=== PATIENT | female | born 1950 | race African-American/Black ===

== ENCOUNTER → 2016-07-28 | Outpatient (CLI) | payer MEDICARE, OTHER ==
[2016-07-28 15:05] LABS: PROTHROMBIN TIME 27.7 SEC (11.4-15.4)
== END ==
LOC: OD 13:34
PROVIDERS: ATTEND Internal Medicine
DX: Z79.01 Long term (current) use of anticoagulants (principal)
CPT/HCPCS: 36415; 85610

== ENCOUNTER → 2016-10-08 | Outpatient (CLI) | payer MEDICARE, OTHER ==
[2016-10-08 15:07] LABS: PROTHROMBIN TIME 31.9 SEC (11.4-15.4)
== END ==
LOC: OD 14:16
PROVIDERS: ATTEND Internal Medicine
DX: Z79.01 Long term (current) use of anticoagulants (principal)
CPT/HCPCS: 36415; 85610

== ENCOUNTER → 2016-12-01 | Outpatient (CLI) | payer MEDICARE, OTHER ==
--- NOTE | 2016-12-01 13:08 | RADIOLOGY REPORT (SQ) ---
EXAM DESCRIPTION: SHOULDER RIGHT 2 OR MORE VIEWS COMPLETED DATE/TIME: 12/01/2016 12:36 pm REASON FOR STUDY: PAIN IN RIGHT SHOULDER M25.511 PAIN IN RIGHT SHOULDER COMPARISON: None. NUMBER OF VIEWS: Three views. TECHNIQUE: Internal rotation, external rotation, and Y view images acquired of the right shoulder. LIMITATIONS: None. FINDINGS: MINERALIZATION: Osteopenia. BONES: No acute fracture or dislocation. No worrisome bone lesions. JOINTS: No glenohumeral malalignment. No acromioclavicular joint widening. Mild ac joint bony spurr ing VISUALIZED LUNGS AND RIBS: No pneumothorax. No rib fracture. SOFT TISSUES: No radiopaque foreign body. OTHER: No other significant finding. IMPRESSION: No acute fracture or malalignment. Acromioclavicular joint bony spurring. TECHNICAL DOCUMENTATION: JOB ID: [id number] [employer]- All Rights Reserved
[2016-12-01 14:34] LABS: PROTHROMBIN TIME 27.5 SEC (11.4-15.4)
== END ==
LOC: OD 12:13
PROVIDERS: ATTEND Internal Medicine
DX: Z79.01 Long term (current) use of anticoagulants (principal); M25.511 Pain in right shoulder
CPT/HCPCS: 36415; 85610

== ENCOUNTER → 2016-12-21 | Day surgery (SDC) | payer MEDICARE, OTHER ==
--- NOTE | 2016-12-21 17:18 | RADIOLOGY REPORT (SQ) ---
CORRECTED REPORT EXAM DESCRIPTION: INJECT SHOULDER ARTHROG; FLUORO NEEDLE PLACEMENT COMPLETED DATE/TIME: 12/21/2016 2:51 pm REASON FOR STUDY: COMPLETE ROTATOR CUFF TEAR OR RUPTURE OF RT SHOULDER (M75.121 ) M75.21 BICIPITAL TENDINITIS, RIGHT SHOULDER FLUOROSCOPY TIME: 21 seconds 2 digital radiographic images saved to PACS. LIMITATIONS: None. PROCEDURE: Procedure, risks, benefits and alternative explained to patient who then gave written consent. The right shoulder was marked and a time-out was called for correct marking verification. Posterior entry site marked using fluoroscopic guidance. Shoulder prepped and draped using sterile technique. Local anesthesia achieved using 6 mL of 1% lidocaine injection. 22 gauge spinal needle introduced into the joint space under direct fluoroscopic visualization. Non-ionic contrast instilled to confirm intra-articular position. Additional dilute non-ionic contrast instilled. Needle removed and entry site covered with sterile bandage. No immediate complications noted. TECHNIQUE: Digital images acquired during fluoroscopy and stored on PACS. Patient immediately taken to the CT suite for additional imaging. INJECTION LOCATION: Right posterior glenohumeral joint CONTRAST TYPE AND AMOUNT: 2 mL of Isovue-300 contrast injected to confirm intra- articular needle placement, followed by 10 mL of dilute Isovue-[address] arthrogram NUMBER OF IMAGES: 2 digital radiographic images, CT post arthrogram dictated separately IMPRESSION: SUCCESSFUL NEEDLE PLACEMENT AND INJECTION FOR RIGHT SHOULDER CT ARTHROGRAM USING POSTERIOR APPROACH. COMMENT: Quality ID 145: Final reports for procedures using fluoroscopy that document radiation exposure indices, or exposure time and number of fluorographic images (if radiation exposure indices are not available) TECHNICAL DOCUMENTATION: JOB ID: [id number] [employer]- All Rights Reserved COMPARISON: None. Right shoulder films 12/01/2016 <Electronically signed by DAYA JEFFREY MD in [place]> 12/21/16 1718 [facility]
--- NOTE | 2016-12-21 17:43 | RADIOLOGY REPORT (SQ) ---
EXAM DESCRIPTION: CT RT UPPER EXTREMITY WITH COMPLETED DATE/TIME: 12/21/2016 2:51 pm REASON FOR STUDY: COMPLETE ROTATOR CUFF TEAR OR RUPTURE OF RT SHOULDER (M75.121) M75.21 BICIPITAL T ENDINITIS, RIGHT SHOULDER COMPARISON: None. TECHNIQUE: Axial imaging performed through the rightshoulder with reformatted oblique coronal and ob lique sagittal imaging windowed for bone and soft tissues. All CT scanners at this facility use dose modulation, iterative reconstruction, and/or weight based d osing when appropriate to reduce radiation dose to as low as reasonably achievable (ALARA). [facility]: Dose Right [facility]: CareDose [facility]: Dose Right [facility]: Teradose 4D [facility]: [employer] RADIATION DOSE: Up-to-date CT equipment and radiation dose reduction techniques were employed. CTDIv ol: 32.2 mGy. DLP: 727 mGy-cm. mGy. LIMITATIONS: None. FINDINGS: SOFT TISSUES: No axillary adenopathy. No soft tissue masses around right shoulder BONY ARCHITECTURE: No fracture. No lytic or blastic lesions. Os acromiale on axial image 12. GLENOHUMERAL JOINT: No dislocation/subluxation. Articular cartilage is preserved. ACROMION AND AC JOINT: Type 2 acromion with os acromiale and mild bony spurring narrowing the subacro mial recess best shown on sagittal image 39. ROTATOR CUFF: There is a small full-thickness rotator cuff tear along the anterior edge supraspinatus , and a small full-thickness tear anterior edge infraspinatus on sagittal images 45-51. Subscapulari s grossly intact. GLENOID, LABRUM AND BICEPS: Intra-articular long head biceps tendon and labral attachment is intact. The posterosuperior labrum is diffusely small on axial images 20-27 and sagittal image 37 without pa ralabral cyst. OTHER: No other significant finding. IMPRESSION: Narrowing of the subacromial space from AC joint bony spurring Small full-thickness tear anterior edge supraspinatus and anterior edge infraspinatus tendon Diffusely small posterior labrum without paralabral cysts. TECHNICAL DOCUMENTATION: JOB ID: [id number] Quality ID # [id number]: Final reports with documentation of one or more dose reduction techniques (e.g., Au tomated exposure control, adjustment of the mA and/or kV according to patient size, use of iterative reconstruction technique) 2010 [employer]- All Rights Reserved
== END ==
LOC: RAD 13:24
PROVIDERS: ATTEND Orthopaedic Surgery
PROC: BP08ZZZ Plain Radiography of Right Shoulder (ICD-10-PCS; principal; 2016-12-21)
DX: M75.121 Complete rotator cuff tear or rupture of right shoulder, not specified as traumatic (principal); M75.21 Bicipital tendinitis, right shoulder
CPT/HCPCS: 23350; 27095; 77002

== ENCOUNTER 2016-12-23 17:36 | Emergency (ER) | payer MEDICARE, OTHER ==
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
[2016-12-23 18:47] LABS: PROTHROMBIN TIME 28.1 SEC (11.4-15.4)
[2016-12-23 18:49] LABS: ABSOLUTE EOSINOPHILS # (AUTO) 0.2 10^3/uL (0.0-0.6); ABSOLUTE LYMPHOCYTES (AUTO) 1.5 10^3/uL (0.5-4.7); ABSOLUTE MONOCYTES (AUTO) 0.6 10^3/uL (0.1-1.4); ABSOLUTE NEUT (AUTO) 3.7 10^3/uL (1.7-8.2); BASOPHILS % (AUTO) 0.8 % (0-2); EOSINOPHILS % (AUTO) 2.9 % (0-6); HEMOGLOBIN 12.8 g/dL (12.0-15.5); HGB HCT DIFFERENCE -1.6; LYMPHOCYTES % (AUTO) 24.4 % (13-45); MEAN CORPUSCULAR HEMOGLOBIN 27.8 pg (27.0-33.4); MEAN CORPUSCULAR VOLUME 87 fl (80-97); MONOCYTES % (AUTO) 9.6 % (3-13); RED CELL DISTRIBUTION WIDTH 14.8 % (11.5-14.0); SEGMENTED NEUTROPHILS % (AUTO) 62.3 % (42-78)
[2016-12-23 18:59] LABS: ALANINE AMINOTRANSFERASE 37 U/L (9-52); ALBUMIN 4.3 g/dL (3.5-5.0); ALKALINE PHOSPHATASE 74 U/L (38-126); ANION GAP 9 (5-19); ASPARTATE AMINO TRANSFERASE 33 U/L (14-36); BILIRUBIN,DIRECT 0.3 mg/dL (0.0-0.4); BILIRUBIN,TOTAL 0.6 mg/dL (0.2-1.3); BLOOD UREA NITROGEN 21 mg/dL (7-20); CALCIUM 9.7 mg/dL (8.4-10.2); CARBON DIOXIDE 29 mmol/L (22-30); CHLORIDE 102 mmol/L (98-107); GLUCOSE 91 mg/dL (75-110); POTASSIUM 4.2 mmol/L (3.6-5.0); SODIUM 140.4 mmol/L (137-145); TOTAL PROTEIN 7.3 g/dL (6.3-8.2)
--- NOTE | 2016-12-23 18:59 | RADIOLOGY REPORT (SQ) ---
EXAM DESCRIPTION: CHEST PA/LAT COMPLETED DATE/TIME: 12/23/2016 6:49 pm REASON FOR STUDY: sob COMPARISON: 06/14/2014 EXAM PARAMETERS: NUMBER OF VIEWS: two views TECHNIQUE: Digital Frontal and Lateral radiographic views of the chest acquired. RADIATION DOSE: NA LIMITATIONS: none FINDINGS: LUNGS AND PLEURA: No opacities, masses or pneumothorax. No pleural effusion. MEDIASTINUM AND HILAR STRUCTURES: No masses or contour abnormalities. HEART AND VASCULAR STRUCTURES: Heart normal size. No evidence for failure. BONES: No acute findings. HARDWARE: Stable. OTHER: No other significant finding. IMPRESSION: NO ACUTE CARDIOPULMONARY PROCESS. NO SIGNIFICANT CHANGE FROM PRIOR STUDY. TECHNICAL DOCUMENTATION: JOB ID: [id number] [employer]- All Rights Reserved
[2016-12-23 19:11] LABS: TROPONIN I 0.012 ng/mL
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
[2016-12-23] MEDS ORDERED: CALCIUM CARBONATE 500 MG TAB.CHEW PO ONE (21:19)
--- NOTE | 2016-12-23 21:36 | RADIOLOGY REPORT (SQ) ---
EXAM DESCRIPTION: CTA CHEST COMPLETED DATE/TIME: 12/23/2016 9:16 pm REASON FOR STUDY: chest pain short of breath COMPARISON: None. TECHNIQUE: CT scan of the chest performed using helical scanning technique with dynamic intravenous contrast injection. Images reviewed with lung, soft tissue and bone windows. Reconstructed coronal and sagittal MPR images reviewed. Additional 3 dimensional post-processing performed to develop Maximal Intensity Projection images (CT P). All images stored on PACS. All CT scanners at this facility use dose modulation, iterative reconstruction, and/or weight based d osing when appropriate to reduce radiation dose to as low as reasonably achievable (ALARA). [facility]: Dose Right [facility]: CareDose [facility]: Dose Right [facility]: Teradose 4D [facility]: [employer] CONTRAST TYPE AND DOSE: contrast/concentration: Isovue 370.00 mg/ml; Total Contrast Delivered: 80.0 ml; Total Saline Delivered: 55.0 ml RENAL FUNCTION: BUN 21 creatinine 0.9 RADIATION DOSE: Up-to-date CT equipment and radiation dose reduction techniques were employed. CTDIv ol: 20.8 mGy. DLP: 557 mGy-cm. . LIMITATIONS: None. FINDINGS: LUNGS AND PLEURA: No masses, infiltrates, pneumothorax. Mild dependent subsegmental atele ctasis. No pleural effusions, calcifications. AORTA AND GREAT VESSELS: No aneurysm or dissection. HEART: No pericardial effusion. PULMONARY ARTERIES: No emboli visualized in the main pulmonary arteries or the segmental branches. HILAR AND MEDIASTINAL STRUCTURES: No identified masses or abnormal nodes. HARDWARE: Median sternotomy wires noted. Prostatic mitral valve. UPPER ABDOMEN: No significant findings. Limited exam. THYROID AND OTHER SOFT TISSUES: No masses. No adenopathy. BONES: No acute or significant finding. 3D MIPS: Confirm above findings. OTHER: No other significant finding. IMPRESSION: NORMAL CTA OF THE CHEST. NO PULMONARY EMBOLI. TECHNICAL DOCUMENTATION: JOB ID: [id number] Quality ID # [id number]: Final reports with documentation of one or more dose reduction techniques (e.g., Au tomated exposure control, adjustment of the mA and/or kV according to patient size, use of iterative reconstruction technique) 2010 [employer]- All Rights Reserved
[2016-12-23 22:21] VITALS: BP 139/86
--- NOTE | 2016-12-25 06:03 | EKG REPORT ---
SEVERITY:- BORDERLINE ECG - SINUS RHYTHM BORDERLINE T ABNORMALITIES, ANTERIOR LEADS : Confirmed by: Lilia Aguilar MD 25-Dec-2016 06:02:47
== END 2016-12-23 22:30 | disposition home or self-care (01) ==
LOC: ER 17:36
DX: R06.02 Shortness of breath (principal); Z98.890 Other specified postprocedural states
CPT/HCPCS: 93005; 99285; 36415; 85025; 85610; 80053; 84484; 83880; 71020; 71275; 93010; A9270

== ENCOUNTER → 2017-03-02 | Outpatient (CLI) | payer MEDICARE, OTHER ==
[2017-03-02 13:35] LABS: PROTHROMBIN TIME 32.5 SEC (11.4-15.4)
== END ==
LOC: OD 12:52
PROVIDERS: ATTEND Internal Medicine
DX: Z79.01 Long term (current) use of anticoagulants (principal); Z51.81 Encounter for therapeutic drug level monitoring
CPT/HCPCS: 36415; 85610

== ENCOUNTER → 2017-05-04 | Outpatient (CLI) | payer MEDICARE, OTHER ==
[2017-05-04 15:08] LABS: ABSOLUTE EOSINOPHILS # (AUTO) 0.2 10^3/uL (0.0-0.6); ABSOLUTE LYMPHOCYTES (AUTO) 1.5 10^3/uL (0.5-4.7); ABSOLUTE MONOCYTES (AUTO) 0.4 10^3/uL (0.1-1.4); ABSOLUTE NEUT (AUTO) 2.9 10^3/uL (1.7-8.2); BASOPHILS % (AUTO) 0.7 % (0-2); EOSINOPHILS % (AUTO) 3.6 % (0-6); HEMATOCRIT 35.8 % (36.0-47.0); HEMOGLOBIN 11.8 g/dL (12.0-15.5); HGB HCT DIFFERENCE -0.4; LYMPHOCYTES % (AUTO) 30.7 % (13-45); MEAN CORPUSCULAR HEMOGLOBIN 28.6 pg (27.0-33.4); MEAN CORPUSCULAR VOLUME 87 fl (80-97); MONOCYTES % (AUTO) 8.3 % (3-13); RED BLOOD COUNT 4.11 10^6/uL (3.72-5.28); RED CELL DISTRIBUTION WIDTH 15.1 % (11.5-14.0); SEGMENTED NEUTROPHILS % (AUTO) 56.7 % (42-78)
[2017-05-04 15:26] LABS: PROTHROMBIN TIME 27.4 SEC (11.4-15.4)
[2017-05-04 15:50] LABS: ANION GAP 10 (5-19); BLOOD UREA NITROGEN 12 mg/dL (7-20); C-REACTIVE PROTEIN 23.3 mg/L (<10.0); CARBON DIOXIDE 33 mmol/L (22-30); CHLORIDE 101 mmol/L (98-107); CREATININE RESULT 0.77 mg/dL (0.52-1.25); GLUCOSE 89 mg/dL (75-110); POTASSIUM 3.3 mmol/L (3.6-5.0); SODIUM 144.3 mmol/L (137-145)
[2017-05-04 15:51] LABS: ERYTHROCYTE SEDIMENTATION RATE 32 mm/hr (0-30)
== END ==
LOC: OD 14:11
PROVIDERS: ATTEND Orthopaedic Surgery
DX: M25.462 Effusion, left knee (principal); Z79.01 Long term (current) use of anticoagulants
CPT/HCPCS: 36415; 80048; 85025; 85610; 85652; 86140

== ENCOUNTER → 2017-05-12 | Outpatient (CLI) | payer MEDICARE, OTHER ==
--- NOTE | 2017-05-12 17:05 | RADIOLOGY REPORT (SQ) ---
EXAM DESCRIPTION: NM 3 PHASE BONE SCAN COMPLETED DATE/TIME: 05/12/2017 3:44 pm REASON FOR STUDY: Z96.652 PRESENCE OF LEFT ARTIFICIAL KNEE JOINT Z96.652 PRESENCE OF LEFT ARTIFICIA L KNEE JOINT COMPARISON: Outside left knee radiographs from January. RADIONUCLIDE AND DOSE: 21.5 millicuries Tc99m MDP. The route of agent administration: Intravenous. ADDITIONAL DRUGS AND DOSES: None. TECHNIQUE: Following injection of the radiopharmaceutical, serial blood flow images acquired. Equil ibrium blood pool images then acquired. Focussed knee delayed images at 3 hour acquired. AREA OF INTEREST: Knees. LIMITATIONS: None. FINDINGS: VASCULAR FLOW IMAGES: No asymmetry or focal areas of hyperemia. BLOOD POOL IMAGES: Subtle blood pooling along the proximal left tibia. BONES: Asymmetric uptake in the proximal left tibia along the tibial component of arthroplasty. Ther e is no fracture or abnormal lucency seen on radiographs from more than 3 months ago. Subtle nonspec ific uptake along the inferolateral right patella. OTHER: No other significant finding. IMPRESSION: 1. Focal uptake is noted, particularly on the static delayed imaging, along the tibial component of left knee arthroplasty. Although radiographs from several months ago are normal, findin gs could reflect loosening. More recent followup radiographs may prove helpful. COMMENT: Quality measure 147: Current bone scan is compared with any available plain radiographs, p rior bone scans, and CT/MRI. TECHNICAL DOCUMENTATION: JOB ID: [id number] [employer]- All Rights Reserved
== END ==
LOC: RAD 11:03
PROVIDERS: ATTEND Orthopaedic Surgery
DX: Z47.1 Aftercare following joint replacement surgery (principal); Z96.652 Presence of left artificial knee joint
CPT/HCPCS: 78315; A9561; Q9969

== ENCOUNTER → 2017-06-22 | Outpatient (CLI) | payer MEDICARE, OTHER ==
--- NOTE | 2017-06-25 09:01 | WOMENS IMAGING REPORT ---
EXAM DESCRIPTION: 3D SCREENING MAMMO BILAT COMPLETED DATE/TIME: 06/22/2017 12:00 pm REASON FOR STUDY: SCREENING MAMMO Z12.31 ENCNTR SCREEN MAMMOGRAM FOR MALIGNANT NEOPLASM OF DELMY COMPARISON: Multiple since 2010 TECHNIQUE: Standard craniocaudal and mediolateral oblique views of each breast recorded using digita l acquisition and breast tomosynthesis. LIMITATIONS: None. FINDINGS: Findings present which are benign by mammographic criteria. No suspicious masses, calcifi cations or architectural distortion. Pertinent benign findings: Stable benign bilateral breast cysts or nodules Read with the assistance of CAD. .[facility] - R2 Cenova Version 1.3 .[facility] - R2 Cenova Version 1.3 .[facility] - R2 Cenova Version 2.4 .[facility] - R2 Cenova Version 2.4 .[facility] - R2 Filament Welder Version 9.2 Benign mammographic findings may include one or more of the following: Smooth masses, popcorn/rim/co arse calcifications, asymmetries, post-procedure changes, and lesions with long-standing stability. IMPRESSION: BENIGN MAMMOGRAPHIC FINDINGS. BIRADS 2 BREAST DENSITY: b. There are scattered areas of fibroglandular density. BIRAD: 2 BENIGN FINDING(S) RECOMMENDATION: RECOMMENDATION: ROUTINE SCREENING Please continue yearly bilateral screening tomosynthesis in June 2018 COMMENT: The patient has been notified of the results by letter per SA requirements. Additional no tification policies are in place for contacting patient with suspicious or incomplete findings. Quality ID #[id number]: The [employer] recommends an annual screening mammogram for women aged 40 years or over. This facility utilizes a reminder system to ensure that all patients receive reminder letters, and/or direct phone calls for appointments. This includes reminders for routine scr eening mammograms, diagnostic mammograms, or other Breast Imaging Interventions when appropriate. Th is patient will be placed in the appropriate reminder system. The [employer] (ACR) has developed recommendations for screening MRI of the breast s in certain patient populations, to be used in conjunction with mammography. Breast MRI surveillanc e may be appropriate for women with more than 20% lifetime risk of developing breast cancer as deter mined by genetic testing, significant family history of the disease, or history of mantle radiation f or Hodgkins Disease. ACR Practice Guidelines 2008. DBT Technology DBT is a type of tomographic mammography. With conventional mammography, overlapping breast tissue ma y make lesions difficult to detect, even with good compression. DBT uses an x-ray tube that rotates a round the breast, taking images at different angles. These images are then combined to create thin sl ices of the breast that the radiologist can view as a 3D reconstruction. The Mila unit can perform full-field digital mammograms (2D imaging); or DBT (3D imaging); or both, in a combination mode that quickly performs both the mammogram and the tomosynthesis scan while the breast is still compressed. PQRS 6045F: Fluoroscopic imaging is not utilized for breast tomosynthesis. TECHNICAL DOCUMENTATION: FINDING NUMBER: (1) ASSESSMENT: (1) JOB ID: [id number] [employer]- All Rights Reserved
== END ==
LOC: WI 10:54
PROVIDERS: ATTEND Obstetrics & Gynecology Gynecology
DX: Z12.31 Encounter for screening mammogram for malignant neoplasm of breast (principal)
CPT/HCPCS: 77063; 77067

== ENCOUNTER → 2017-06-23 | Outpatient (CLI) | payer MEDICARE, OTHER ==
[2017-06-23 13:42] LABS: ABSOLUTE EOSINOPHILS # (AUTO) 0.1 10^3/uL (0.0-0.6); ABSOLUTE LYMPHOCYTES (AUTO) 1.5 10^3/uL (0.5-4.7); ABSOLUTE MONOCYTES (AUTO) 0.3 10^3/uL (0.1-1.4); ABSOLUTE NEUT (AUTO) 2.6 10^3/uL (1.7-8.2); BASOPHILS % (AUTO) 0.6 % (0-2); EOSINOPHILS % (AUTO) 2.9 % (0-6); HEMATOCRIT 39.1 % (36.0-47.0); HEMOGLOBIN 12.8 g/dL (12.0-15.5); LYMPHOCYTES % (AUTO) 33.1 % (13-45); MEAN CORPUSCULAR HEMOGLOBIN 28.5 pg (27.0-33.4); MEAN CORPUSCULAR HGB CONC 32.8 g/dL (32.0-36.0); MEAN CORPUSCULAR VOLUME 87 fl (80-97); MONOCYTES % (AUTO) 7.2 % (3-13); PLATELET COUNT 156 10^3/uL (150-450); RED BLOOD COUNT 4.49 10^6/uL (3.72-5.28); RED CELL DISTRIBUTION WIDTH 15.1 % (11.5-14.0); SEGMENTED NEUTROPHILS % (AUTO) 56.2 % (42-78); TOTAL CELLS COUNTED % (AUTO) 100 %; WHITE BLOOD COUNT 4.5 10^3/uL (4.0-10.5)
--- NOTE | 2017-06-23 13:43 | RADIOLOGY REPORT (SQ) ---
EXAM DESCRIPTION: CHEST PA/LATERAL COMPLETED DATE/TIME: 06/23/2017 1:34 pm REASON FOR STUDY: PRE OP COMPARISON: CTA chest 12/23/2016 Two-view chest 12/23/2016 EXAM PARAMETERS: NUMBER OF VIEWS: two views TECHNIQUE: Digital Frontal and Lateral radiographic views of the chest acquired. RADIATION DOSE: NA LIMITATIONS: none FINDINGS: LUNGS AND PLEURA: No opacities, masses or pneumothorax. No pleural effusion. MEDIASTINUM AND HILAR STRUCTURES: No masses or contour abnormalities. HEART AND VASCULAR STRUCTURES: Heart normal size. No evidence for failure. BONES: No acute findings. HARDWARE: Old sternotomy for mitral valve replacement. OTHER: No other significant finding. IMPRESSION: Old sternotomy for mitral valve replacement. No acute infiltrates. No cardiomegaly TECHNICAL DOCUMENTATION: JOB ID: [id number] [email or web address]- All Rights Reserved
[2017-06-23 13:53] LABS: INTERNATIONAL RATION (INR) 2.98; PROTHROMBIN TIME 32.4 SEC (11.4-15.4)
[2017-06-23 14:02] LABS: APPEARANCE,URINE SLIGHTLY-CLOUDY; BILIRUBIN,URINE NEGATIVE (NEGATIVE); COLOR,URINE YELLOW; GLUCOSE, URINE NEGATIVE (NEGATIVE); KETONES,URINE NEGATIVE (NEGATIVE); LEUKOCYTE ESTERASE,URINE TRACE (NEGATIVE); NITRITE,URINE NEGATIVE (NEGATIVE); PROTEIN,URINE NEGATIVE (NEGATIVE); URINE SPECIFIC GRAVITY 1.027
[2017-06-23 14:07] LABS: ALANINE AMINOTRANSFERASE 32 U/L (9-52); ALBUMIN 4.3 g/dL (3.5-5.0); ALKALINE PHOSPHATASE 74 U/L (38-126); ASPARTATE AMINO TRANSFERASE 28 U/L (14-36); BILIRUBIN,DIRECT 0.3 mg/dL (0.0-0.4); BILIRUBIN,TOTAL 0.7 mg/dL (0.2-1.3); CHOLESTEROL 212.73 mg/dL (0-200); TOTAL PROTEIN 7.1 g/dL (6.3-8.2); TRIGLYCERIDES 160 mg/dL (<150)
[2017-06-23 14:08] LABS: ANION GAP 8 (5-19); BLOOD UREA NITROGEN 12 mg/dL (7-20); CALCIUM 9.8 mg/dL (8.4-10.2); CARBON DIOXIDE 32 mmol/L (22-30); CHLORIDE 103 mmol/L (98-107); GLUCOSE 84 mg/dL (75-110); POTASSIUM 3.5 mmol/L (3.6-5.0); SODIUM 142.7 mmol/L (137-145)
[2017-06-23 14:18] LABS: DIRECT LDL 121 mg/dL (<100)
--- NOTE | 2017-06-23 23:25 | EKG REPORT ---
SEVERITY:- BORDERLINE ECG - SINUS RHYTHM BORDERLINE T ABNORMALITIES, ANTERIOR LEADS : Confirmed by: Eusebio Bradley 23-Jun-2017 23:24:48
== END ==
LOC: OD 12:16
PROVIDERS: ATTEND Orthopaedic Surgery
DX: Z01.818 Encounter for other preprocedural examination (principal); I35.0 Nonrheumatic aortic (valve) stenosis; I34.8 Other nonrheumatic mitral valve disorders; E78.5 Hyperlipidemia, unspecified; I36.8 Other nonrheumatic tricuspid valve disorders; Z95.2 Presence of prosthetic heart valve; Z79.01 Long term (current) use of anticoagulants; I49.3 Ventricular premature depolarization; J45.998 Other asthma; J44.9 Chronic obstructive pulmonary disease, unspecified; K21.9 Gastro-esophageal reflux disease without esophagitis; Z79.899 Other long term (current) drug therapy
CPT/HCPCS: 36415; 71046; 80048; 80061; 80076; 81001; 85025; 85610; 93005; 93010

== ENCOUNTER → 2017-06-29 | Outpatient (CLI) | payer MEDICARE, OTHER ==
--- NOTE | 2017-06-29 18:17 | XCELERA REPORT ---
[address] [address] Transthoracic Echocardiogram Report Name: JOCELYN MARCIAL Age: 67 yrs Gender: Female : 1950 Patient Status: Outpatient Patient Location: Study Date: 06/29/2017 11:20 AM Height: 63 in Weight: 201 lb BSA: 1.9 m2 Procedure: A two-dimensional transthoracic echocardiogram with color flow Doppler was performed. Study Quality: Fair. Reason For Study: CHEST PAIN / Prosthetic MVR. History: CHEST PAIN / Prosthetic MVR. Ordering Physician: LILIA MAHAN Performed By: Kassandra Hammond Interpretation Summary The left ventricle is normal in size. There is normal left ventricular wall thickness. LV EF is > than 60% Left ventricular systolic function is normal. The left ventricular wall motion is normal. There is no thrombus. The right ventricle is normal in size and function. The right atrium is normal. The left atrial size is normal. There is no evidence of mitral valve prolapse. There is no vegetation seen on the mitral valve. There is no mitral valve stenosis. There is a prosthetic mitral valve. The prosthetic mitral valve appears to open well. Trace MR. Mild Aortic Sclerosis without stenosis. There is no LVOT obstruction. There is a mild amount of aortic regurgitation There is no tricuspid stenosis. There is a mild amount of tricuspid regurgitation Right ventricular systolic pressure is normal. RVSP is 23 mm of Hg , with RA mean of 5. The aortic root is normal size. There is no pericardial effusion. Recommend antibiotics prior to ,GI , and dental procedures or surgeries. MMode/2D Measurements & Calculations RVDd: 2.6 cm LVIDd: 4.2 cm FS: 32.5 % Ao root diam: 3.1 cm IVSd: 1.0 cm LVIDs: 2.9 cm EDV(Teich): 80.1 ml LVPWd: 0.96 cmESV(Teich): 31.1 ml Ao root area: 7.5 cm2 EF(Teich): 61.2 % LA dimension: 3.8 cm LVOT diam: 1.9 cm LVOT area: 3.0 cm2 Doppler Measurements & Calculations MV E max john: MV V2 max: MV P1/2t max john: Ao V2 max: 135.2 cm/sec 153.1 cm/sec 135.7 cm/sec 122.6 cm/sec MV A max john: MV max PG: MV P1/2t: 80.3 msec Ao max P.7 cm/sec 9.4 mmHg MVA(P1/2t): 2.7 cm2 6.0 mmHg MV E/A: 1.4 MV V2 mean: MV dec slope: MELANIE(V,D): 1.6 cm2 80.6 cm/sec 495.2 cm/sec2 MV mean PG: MV dec time: 3.2 mmHg 0.26 sec MV V2 VTI: 42.9 cm MVA(VTI): 0.97 cm2 AI max john: LV V1 max PG: SV(LVOT): 41.4 ml PA V2 max: 467.5 cm/sec 1.8 mmHg 60.7 cm/sec AI max PG: LV V1 mean PG: PA max P.4 mmHg 0.82 mmHg 1.5 mmHg AI dec slope: LV V1 max: 272.3 cm/sec2 67.1 cm/sec AI P1/2t: LV V1 mean: 503.0 msec 41.2 cm/sec LV V1 VTI: 13.9 cm PI end-d john: TR max john: 95.0 cm/sec 213.1 cm/sec TR max P.2 mmHg Left Ventricle The left ventricle is normal in size. There is normal left ventricular wall thickness. LV EF is > than 60%. Left ventricular systolic function is normal. Doppler measurements suggest normal left ventricular diastolic function. The left ventricular wall motion is normal. There is no thrombus. Right Ventricle The right ventricle is normal in size and function. Atria The right atrium is normal. The left atrial size is normal. Mitral Valve There is no evidence of mitral valve prolapse. There is no vegetation seen on the mitral valve. There is no mitral valve stenosis. There is a prosthetic mitral valve. The prosthetic mitral valve appears to open well. Trace MR. Aortic Valve There is no aortic valvular vegetation. Mild Aortic Sclerosis without stenosis. There is no LVOT obstruction. There is a mild amount of aortic regurgitation. Tricuspid Valve There is no tricuspid stenosis. There is a mild amount of tricuspid regurgitation. Right ventricular systolic pressure is normal. RVSP is 23 mm of Hg , with RA mean of 5. Pulmonic Valve There is no pulmonic valvular stenosis. There is a trace amount of pulmonic regurgitation. Great Vessels The aortic root is normal size. Effusions There is no pericardial effusion. Recommend antibiotics prior to ,GI , and dental procedures or surgeries. : LILIA MAHAN > Lilia Mahan
== END ==
LOC: SP 10:52
PROVIDERS: ATTEND Specialist
DX: R07.9 Chest pain, unspecified (principal)
CPT/HCPCS: 93306

== ENCOUNTER → 2017-06-30 | Outpatient (CLI) | payer MEDICARE, OTHER ==
[~2017-06-30] MED LIST: AMINOPHYLLINE INJ/PF 250 MG/10 ML SDV IV ONE; REGADENOSON INJ 0.4 MG/5 ML DISP.SYRIN IV ONE
--- NOTE | 2017-07-01 12:17 | DRAGON STRESS TEST REPORT ---
INTRAVENOUS LEXISCAN CARDIOLITE STRESS TEST USING SINGLE PHOTON EMMISION COMPUTERIZED TOMOGRAPHIC. DATE OF PROCEDURE: June 30, 2017, INDICATION : Chest pain CARDIAC RISK FACTORS: Hypertension RESTING EKG: Sinus rhythm with minor nonspecific anterior T-wave inversions STRESS EKG: No significant changes noted with LexiScan bolus REASON FOR TERMINATION: Protocol. PROCEDURE REPORT: Baseline heart rate 68 beats per minute with blood pressure of 131/76. Patient had no significant complaints. Heart rate at 2 minutes post bolus 93 with a blood pressure of 140/79. 3 minutes post bolus heart rate 87 with blood pressure of 149/79. No significant EKG changes were noted. Patient had no significant complaints during the procedure or postprocedure. Patient injected with Aminophyllin 75 mg at 3 minutes or later after Lexiscan bolus. CONCLUSIONS: Normal EKG and hemodynamic response to IV LexiScan. NUCLEAR DATA: At rest the patient was given 10.05 millicuries of technetium 99 sestamibi injected intravenously. As per protocol rest gated SPECT images were obtained. On day of stress test, the patient was given intravenous LexiScan at a dose of 0.4 mg in 5 mL intravenously, followed by flush with normal saline. Subsequently the stress dose of 31.1 millicuries of technetium 99 sestamibi was injected intravenously. As per protocol stress gated images were obtained. NUCLEAR INTERPRETATION: Both raw and processed data were used for interpretation. Visual, qualitative, computer-generated quantitative data was used. There was good myocardial uptake of technetium compound. Motion artifact and soft tissue attenuations were noted. Increased visceral uptake was noted. No definitive areas of transient perfusion defect noted, No definitive areas of fixed perfusion defect or scars noted. EKG gated imaging showed LV EF at 55 %, rest and stress gated EF similar visually. T. I D. ratio was 1.10. Lung heart ratio noted to be within normal limits 0.36. No significant extracardiac and abnormal radiotracer activities were noted. RV free wall uptake was noted to be WNL. IMPRESSION: Also refer to comments under nuclear interpretation. Also test results needs to be interpreted in the context of pretest probability. 1. No definitive areas of transient perfusion defect noted. 2. There is no definitive scintigraphic evidence of myocardial infarction/scar. 3. EKG gated imaging shows left ventricular ejection fraction of approx. 55 %. 4. Clinical correlation requested as occasionally single vessel disease or balanced ischemia could be missed. In approximately 10% of the cases Lexiscan may not cause adequate vasodilatory stress. Recommendations: Aggressive risk factor modification and medical management. Further evaluation may be needed if continued symptoms or other high risk indicators are noted on clinical evaluation. MTDD
== END ==
LOC: RAD 07:13
PROVIDERS: ATTEND Specialist
DX: R07.9 Chest pain, unspecified (principal)
CPT/HCPCS: 93017; 78452; A9500; J2785; J0280; Q9969

== ENCOUNTER → 2017-07-12 | Outpatient (CLI) | payer MEDICARE, OTHER | LOC: OD 15:13 | PROVIDERS: ATTEND Internal Medicine | DX: I35.0 Nonrheumatic aortic (valve) stenosis (principal); I34.8 Other nonrheumatic mitral valve disorders; E66.9 Obesity, unspecified; E78.5 Hyperlipidemia, unspecified; I36.8 Other nonrheumatic tricuspid valve disorders; I49.3 Ventricular premature depolarization; J45.998 Other asthma; J44.9 Chronic obstructive pulmonary disease, unspecified; K21.9 Gastro-esophageal reflux disease without esophagitis; Z79.899 Other long term (current) drug therapy; Z95.2 Presence of prosthetic heart valve; Z79.01 Long term (current) use of anticoagulants | CPT/HCPCS: 36415; 84132 ==

== ENCOUNTER 2017-07-19 05:18 | Inpatient (IN) | payer MEDICARE, OTHER ==
[~2017-07-19 05:18] MED LIST changes: -AMINOPHYLLINE INJ/PF 250 MG/10 ML SDV IV ONE; +BUPIVACAINE INJ/PF LIPOSOME/PF 266 MG/20 ML SDV IJ PRN; +IBUPROFEN 800 MG/NS 250 ML IV PRN; +LACTATED RINGERS 1000 ML IV PRN; +LANSOPRAZOLE 15 MG TAB.RAP.DR PO PRN; +LIDOCAINE 0.5% INJ-PF (5 MG/ML) 50 ML SDV SUBCUT PRN; +OXYCODONE HCL SR 10 MG TABLET PO PRN; -REGADENOSON INJ 0.4 MG/5 ML DISP.SYRIN IV ONE; +VANCOMYCIN HCL 1,000 MG in DEXTROSE 5%-WATER 250 ML IV PRN
[2017-07-19] MEDS ORDERED: THROMBIN (BOVINE) TOPICAL 20000 UNIT VIAL ONE (05:23)
[2017-07-19] MEDS ORDERED: BUPIVACAINE INJ/PF LIPOSOME/PF 266 MG/20 ML SDV ONE (05:23)
[2017-07-19] MEDS ORDERED: THROMBIN (BOVINE) 5000 UNIT EPITAXIS KIT ONE (05:23)
[2017-07-19] MEDS ORDERED: CEFAZOLIN INJ 1 GM VIAL ONE (06:26)
[2017-07-19 06:29] LABS: INTERNATIONAL RATION (INR) 1.24; PROTHROMBIN TIME 16.4 SEC (11.4-15.4)
[2017-07-19] MEDS ORDERED: LIDOCAINE 2% INJ-PF (20 MG/ML) 10 ML AMPUL ONE (06:50)
[2017-07-19] MEDS ORDERED: FENTANYL CITRATE INJ/PF 100 MCG/2 ML AMPUL ONE (06:50)
[2017-07-19] MEDS ORDERED: MIDAZOLAM 2 MG/2 ML INJ ONE (06:50)
[2017-07-19] MEDS ORDERED: EPHEDRINE SULFATE INJ 50 MG/1 ML AMPULE ONE (06:51)
[2017-07-19] MEDS ORDERED: TRANEXAMIC ACID INJ/PF 1,000 MG/10 ML SDV IV ONE ×3 (06:51→11:00)
[2017-07-19] MEDS ORDERED: PROPOFOL INJ 200 MG/20 ML VIAL IV ONE (06:51)
[2017-07-19] MEDS ORDERED: PROMETHAZINE HCL INJ 25 MG/1 ML VIAL IV PRN (08:13)
[2017-07-19] MEDS ORDERED: DIPHENHYDRAMINE HCL 50 MG/ML VIAL IV PRN (08:13)
[2017-07-19] MEDS ORDERED: FENTANYL CITRATE INJ/PF 100 MCG/2 ML AMPUL IV PRN ×3 (08:13)
[2017-07-19] MEDS ORDERED: MORPHINE SULFATE 10 MG/ML INJ IV PRN ×4 (08:13→09:19)
[2017-07-19] MEDS ORDERED: ONDANSETRON HCL INJ/PF 4 MG/2 ML SDV ONE (08:33)
[2017-07-19] MEDS ORDERED: DEXAMETHASONE SOD PHOSPHATE INJ 4 MG/1 ML VIAL ONE (08:33)
[2017-07-19] MEDS ORDERED: GLYCOPYRROLATE INJ 0.4 MG/2 ML VIAL ONE (08:33)
[2017-07-19] MEDS ORDERED: NEOSTIGMINE METHYLSULFATE 10 MG/10 ML VIAL ONE (08:33)
[2017-07-19] MEDS ORDERED: SUCCINYLCHOLINE CHLORIDE INJ 200 MG/10 ML VIAL ONE (08:33)
--- NOTE | 2017-07-19 09:15 | Operative Report ---
Operative Report DATE OF SURGERY: 07/19/17 PREOPERATIVE DIAGNOSIS: Loose left tibial component status post knee arthroplasty OPERATION: Left knee revision arthroplasty SURGEON: SHERRY RIVAS 1ST BAR ATTENDANT: FRANNIE COLLADO ANESTHESIA: GA TISSUE REMOVED OR ALTERED: Cultures 2 to microbiology. Implants to CSS COMPLICATIONS: Medial femoral condyle fracture ESTIMATED BLOOD LOSS: 100 PROCEDURE: Implants used: Femur: [place] [employer] size 3 TC 3 femur with metaphyseal cone and 12 x 75 mm stem Tibia: Size 2 tibia with metaphyseal cone and 12 x 75 stem Tibial liner: 10 mm TC 3 insert Patella:[] Procedure with the patient supine on the operating table the left the limb is prepped and draped in a sterile fashion. The limb was elevated for exsanguination and the tourniquet inflated to 280 torr. A standard midline median parapatellar approach the knee is taken in line with the previous surgical approach. Upon entering the joint capsule cultures 2 are sent for culture and sensitivity. The femoral component is now exposed. It has loosened using a TPS saw around its perimeter. Subsequently disimpacted from the femur with minimal bone loss.. Access is gained to the femoral canal through the intercondylar notch. The femur is then prepared for the metaphyseal cone and the femoral stem.. Sizing guide indicated a size 3 femur. Appropriate cutting jig is then used to fashion anterior posterior and chamfer cuts followed by the TC 3 box cut.. A trial reduction femur is performed and this is judged to be adequate. Attention was next turned to the tibia. Likewise the tibia is removed using a TPS saw followed by osteotomes. There is minimal if any bone loss. The tibial canal is then reamed for a 12 x 75 stem with metaphyseal cone. This is sized to a size 2 tibia. A trial reduction was now performed with a 3 femur and a to tibia using a 10 millimeters spacer. It is full extension and central patellofemoral tracking. The patella was not revised. All trial implants were removed. At this point it is clear that these medial femoral condyle fracture. As I entertain the options with the which would either be for interfragmentary screw fixation which I do not think there is enough bone to support versus cerclage wire on left with the clinical impression that probably would be better to allow the implant to stabilize the medial femoral condyle. Polymethylmethacrylate with tobramycin is mixed and used to cement the above implants in place with careful attention of returning the medial femoral condyle to its anatomic location. On adequate curing the cement excess cement was removed the tourniquet was deflated hemostasis obtained the wound is then closed in layers using interrupted Vicryl followed by denia. A sterile compressive dressing was applied and the patient returned to recovery room in satisfactory condition.
[2017-07-19] MEDS ORDERED: ONDANSETRON 4 MG TAB.RAPDIS PO PRN (09:19)
[2017-07-19] MEDS ORDERED: MORPHINE SULFATE 10 MG/ML INJ IM PRN (09:19)
[2017-07-19] MEDS ORDERED: MAG HYDROX/AL HYDROX/SIMETH SUSP 30 ML UDCUP PO PRN (09:19)
[2017-07-19] MEDS ORDERED: ZOLPIDEM TARTRATE 5 MG TABLET PO PRN (09:19)
--- NOTE | 2017-07-19 09:30 | Physician Advisory Note ---
Physician Advisor ProgressNote .: Pursuant to the plan for Amalia Reyes, I have reviewed the medical record for this patient. Physician Advisor Statement: Please clarify in documentation: 1. Was medial femoral condyle fx likely present prior to surgery? - (Current documentation implies it was caused by the surgery.) 2. Pain or functional disability from injury due to trauma or arthritis of the joint interferes with these ADLs (Choose ALL that apply): A. Standing B. Walking C. Bathing D. Cooking E. Squatting F. Climbing stairs G. 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 Appropriate for Inpatient status. Thanks! CK
[2017-07-19] MEDS: FENTANYL CITRATE INJ/PF 100 MCG/2 ML AMPUL ONE ×2 (09:41→09:50)
[2017-07-19] MEDS ORDERED: ENOXAPARIN SODIUM INJ 30 MG/0.3 ML DISP.SYRIN SUBCUT SCH (10:00)
[2017-07-19] MEDS: MORPHINE SULFATE 10 MG/ML INJ ONE ×2 (10:05→10:15)
--- NOTE | 2017-07-19 11:27 | RADIOLOGY REPORT (SQ) ---
EXAM DESCRIPTION: KNEE LEFT 2 VIEWS COMPLETED DATE/TIME: 07/19/2017 11:07 am REASON FOR STUDY: POST OP LONG CASSETTE IN PACU Z96.652 PRESENCE OF LEFT ARTIFICIAL KNEE JOINT COMPARISON: None. NUMBER OF VIEWS: Two view(s). TECHNIQUE: Digital radiographic images of the left knee post-procedure. LIMITATIONS: None. FINDINGS: BONES: No worrisome or unexpected findings post-procedure. DEVICE: Total knee arthroplasty. SOFT TISSUES: No worrisome findings. Expected postoperative soft tissue changes. IMPRESSION: SATISFACTORY POSTOPERATIVE LEFT KNEE. TECHNICAL DOCUMENTATION: JOB ID: [id number] [employer]- All Rights Reserved
[2017-07-19] MEDS ORDERED: HYDROMORPHONE HCL INJ/PF 2 MG/ML AMPULE ONE (11:36)
[2017-07-19] MEDS: ONDANSETRON HCL INJ/PF 4 MG/2 ML SDV IV PRN ×2 (13:47→19:51)
[2017-07-19] MEDS: PREGABALIN 75 MG CAPSULE PO SCH ×2 (14:00→17:12)
[2017-07-19] MEDS: OXYCODONE HCL SR 10 MG TABLET PO SCH ×2 (14:00→22:16)
[2017-07-19] MEDS: HYDROMORPHONE HCL INJ/PF 2 MG/ML AMPULE IV PRN (15:10)
[2017-07-19] MEDS ORDERED: ACETAMINOPHEN 100 ML IV ONE (15:19)
[2017-07-19] MEDS ORDERED: ACETAMINOPHEN 100 ML IV SCH (16:00)
[2017-07-19] MEDS: ACETAMINOPHEN 100 ML IV SCH ×2 (17:12→23:16)
[2017-07-19] MEDS ORDERED: VANCOMYCIN HCL 1,000 MG in DEXTROSE 5%-WATER 250 ML IV ONE (21:19)
[2017-07-20] MEDS: HYDROMORPHONE HCL INJ/PF 2 MG/ML AMPULE IV PRN (00:30)
[2017-07-20] MEDS: ONDANSETRON HCL INJ/PF 4 MG/2 ML SDV IV PRN (03:26)
[2017-07-20] MEDS: LANSOPRAZOLE 30 MG TAB.RAP.DR PO SCH (05:12)
[2017-07-20 06:46] LABS: INTERNATIONAL RATION (INR) 1.22; PROTHROMBIN TIME 16.3 SEC (11.4-15.4)
--- NOTE | 2017-07-20 07:02 | PDOC PROGRESS REPORT ---
Subjective Progress Note for:: 07/20/17 Reason For Visit: Z96.652 PRESENCE OF LEFT ARTIFICIAL KNEE JOINT 67-year-old black female postop day 1 left knee revision arthroplasty. Patient with complaints of nausea and pain Physical Exam Vital Signs: Temp Pulse Resp BP Pulse Ox 36.9 C 109 H 18 126/62 H 100 07/20/17 00:31 07/20/17 00:31 07/20/17 00:31 07/20/17 00:31 07/20/17 00:31 Intake & Output 07/19/17 07/20/17 07/21/17 06:59 06:59 06:59 Intake Total 0 7922 Output Total 5650 Balance 0 2272 General appearance: PRESENT: mild distress, well-nourished Head exam: PRESENT: normocephalic Respiratory exam: PRESENT: unlabored Cardiovascular exam: PRESENT: RRR Pulses: PRESENT: +1 pedal pulses bilateral Vascular exam: PRESENT: normal capillary refill GI/Abdominal exam: PRESENT: soft Rectal exam: PRESENT: deferred Extremities exam: PRESENT: other - Left knee dressing clean dry and intact. Distal neurovascular examination is intact. Neurological exam: PRESENT: alert, awake, oriented to person, oriented to place , oriented to time, oriented to situation. ABSENT: motor sensory deficit Psychiatric exam: PRESENT: appropriate affect, normal mood. ABSENT: homicidal ideation, suicidal ideation Skin exam: PRESENT: dry, intact, warm. ABSENT: cyanosis, rash Results Laboratory Results: 07/20/17 06:14 07/20/17 06:14 Sodium Cancelled Potassium Cancelled Chloride Cancelled Carbon Dioxide Cancelled Anion Gap Cancelled BUN Cancelled Creatinine Cancelled Est GFR ( Amer) Cancelled Est GFR (Non-Af Amer) Cancelled Glucose Cancelled Calcium Cancelled Impressions: Knee X-Ray 07/19/17 00:00 IMPRESSION: SATISFACTORY POSTOPERATIVE LEFT KNEE. Status: Imported from PACS Assessment & Plan - Diagnosis (1) Mechanical complication of knee prosthesis Is this a current diagnosis for this admission?: Yes Plan: Patient postop day 1 left knee revision arthroplasty. Patient be mobilized with physical therapy and weightbearing as tolerated basis. (2) Chronic anticoagulation Is this a current diagnosis for this admission?: Yes Plan: Coumadin has been restarted. Patient on a Lovenox bridge. - Time Time Spent with patient: 15-24 minutes Anticipated discharge: Home with Homehealth Within: within 48 hours
[2017-07-20] MEDS ORDERED: PROMETHAZINE HCL 25 MG TABLET PO PRN (07:04)
[2017-07-20 07:05] LABS: HEMATOCRIT 30.2 % (36.0-47.0); HEMOGLOBIN 9.8 g/dL (12.0-15.5); MEAN CORPUSCULAR HEMOGLOBIN 28.5 pg (27.0-33.4); MEAN CORPUSCULAR HGB CONC 32.4 g/dL (32.0-36.0); MEAN CORPUSCULAR VOLUME 88 fl (80-97); RED BLOOD COUNT 3.43 10^6/uL (3.72-5.28); RED CELL DISTRIBUTION WIDTH 14.9 % (11.5-14.0); WHITE BLOOD COUNT 10.7 10^3/uL (4.0-10.5)
[2017-07-20 07:28] LABS: PLATELET COUNT 108 10^3/uL (150-450)
[2017-07-20] MEDS: ACETAMINOPHEN 100 ML IV SCH ×3 (08:34→23:52)
[2017-07-20 08:37] LABS: ANION GAP 5 (5-19); BLOOD UREA NITROGEN 12 mg/dL (7-20); CALCIUM 8.7 mg/dL (8.4-10.2); CARBON DIOXIDE 32 mmol/L (22-30); CHLORIDE 101 mmol/L (98-107); GLUCOSE 147 mg/dL (75-110); POTASSIUM 3.9 mmol/L (3.6-5.0); SODIUM 137.9 mmol/L (137-145)
[2017-07-20] MEDS: HYDROCHLOROTHIAZIDE 12.5 MG CAPSULE PO SCH (09:50)
[2017-07-20] MEDS: OXYCODONE HCL SR 10 MG TABLET PO SCH ×2 (09:51→21:36)
[2017-07-20] MEDS: MULTIVITAMIN TABLET PO SCH (09:52)
[2017-07-20] MEDS: LACTOBACILLUS ACIDOPHILUS 250 MG TAB PO SCH (09:52)
[2017-07-20] MEDS: OMEGA-3 ACID ETHYL ESTERS 1 GM CAPSULE PO SCH (09:52)
[2017-07-20] MEDS: PREGABALIN 75 MG CAPSULE PO SCH ×2 (09:53→17:25)
[2017-07-20] MEDS: LOSARTAN POTASSIUM 50 MG TABLET PO SCH (09:53)
[2017-07-20] MEDS: ENOXAPARIN SODIUM INJ 30 MG/0.3 ML DISP.SYRIN SUBCUT SCH ×2 (09:54→21:36)
[2017-07-20] MEDS ORDERED: (PENDING PHARMACY ID) (Omega-3 Fatty Acids/Fish Oil [Fish Oil 1,000 Mg Capsule] 1 CAP) PO SCH (10:00)
[2017-07-20] MEDS ORDERED: (PENDING PHARMACY ID) (Losartan/Hydrochlorothiazide [Hyzaar 100-12.5 Tablet] 1 TAB) PO SCH (10:00)
[2017-07-20] MEDS: OXYCODONE HCL IR 5 MG TABLET PO PRN (12:20)
[2017-07-20] MEDS: WARFARIN SODIUM 5 MG TABLET PO SCH (21:36)
[2017-07-21] MEDS: LANSOPRAZOLE 30 MG TAB.RAP.DR PO SCH (05:21)
--- NOTE | 2017-07-21 07:17 | PDOC PROGRESS REPORT ---
Subjective Progress Note for:: 07/21/17 Subjective:: Patient lying recumbent in hospital bed. Patient reports that she still been having pain along her proximal thigh of left lower extremity. She coughs throughout encounter this morning and states she feels as though she has something in her chest that she cannot cough up. Reason For Visit: Z96.652 PRESENCE OF LEFT ARTIFICIAL KNEE JOINT Physical Exam Vital Signs: Temp Pulse Resp BP Pulse Ox 37.4 C 104 H 16 94/55 L 100 07/21/17 00:00 07/21/17 00:00 07/21/17 00:00 07/21/17 00:00 07/21/17 00:00 Intake & Output 07/20/17 07/21/17 07/22/17 06:59 06:59 06:59 Intake Total 7922 450 Output Total 5650 2000 Balance 2272 -1550 General appearance: PRESENT: no acute distress, well-developed, well-nourished Head exam: PRESENT: atraumatic, normocephalic Additional comments: Patient coughing multiple times through exam this morning. Reports she feels as if she has "something in the chest or throat". Pulses: PRESENT: normal dorsalis pedis pul, +2 pedal pulses bilateral Vascular exam: PRESENT: normal capillary refill Additional comments: Patient lying recumbent in hospital bed with bilateral lower extremities in full extension. Her OpSite compression dressing is still in place. Patient reports she is still having pain along the proximal left thigh. She has brisk capillary refill to toes on bilateral lower extremities and minimal pedal edema. Her leg lengths are equal and distal neurovascular exam is intact. Musculoskeletal exam: PRESENT: ambulatory Additional comments: Patient makes very slow progress with physical therapy only ambulating 25 feet independently. She will continue to work with physical therapy throughout her stay at the hospital to improve strength range of motion of left lower extremity to improve distance of ambulation. Neurological exam: PRESENT: alert, awake, oriented to person, oriented to place , oriented to time, oriented to situation, CN II-XII grossly intact. ABSENT: motor sensory deficit Psychiatric exam: PRESENT: appropriate affect, normal mood. ABSENT: homicidal ideation, suicidal ideation Skin exam: PRESENT: dry, intact, warm. ABSENT: cyanosis, rash Results Laboratory Results: 07/20/17 06:14 07/20/17 07:58 07/20/17 07/20/17 06:14 07:58 WBC 10.7 H RBC 3.43 L Hgb 9.8 L Hct 30.2 L MCV 88 MCH 28.5 MCHC 32.4 RDW 14.9 H Plt Count 108 L Sodium 137.9 Potassium 3.9 Chloride 101 Carbon Dioxide 32 H Anion Gap 5 BUN 12 Creatinine 0.80 Est GFR ( Amer) > 60 Est GFR (Non-Af Amer) > 60 Glucose 147 H Calcium 8.7 Impressions: Knee X-Ray 07/19/17 00:00 IMPRESSION: SATISFACTORY POSTOPERATIVE LEFT KNEE. Assessment & Plan - Diagnosis (1) Mechanical complication of knee prosthesis Is this a current diagnosis for this admission?: Yes - Plan Summary Plan Summary: 67-year-old white female 2 days status post total left knee arthroplasty revision. Patient still reports she is having pain at proximal left thigh and her OpSite compression dressing was left in place this morning. She makes slow progress with physical therapy only ambulating 25 feet independently. She will continue to work with physical therapy to improve strength range of motion of left lower extremity and work towards further distance of ambulation. This morning she notes that she has been feeling congested and consistently coughing. In order to assess for possible pneumonia and/or other lung pathology a chest x-ray will be ordered as well as DuoNeb respiratory treatments. This will hopefully resolve her chest discomfort. Pending her progress with physical therapy and results of these respiratory exams we will plan for discharge later this week.
[2017-07-21 07:27] LABS: HEMATOCRIT 26.3 % (36.0-47.0); HEMOGLOBIN 8.8 g/dL (12.0-15.5); MEAN CORPUSCULAR HEMOGLOBIN 29.2 pg (27.0-33.4); MEAN CORPUSCULAR HGB CONC 33.2 g/dL (32.0-36.0); MEAN CORPUSCULAR VOLUME 88 fl (80-97); RED BLOOD COUNT 2.99 10^6/uL (3.72-5.28); WHITE BLOOD COUNT 7.6 10^3/uL (4.0-10.5)
[2017-07-21 07:29] LABS: INTERNATIONAL RATION (INR) 1.49; PROTHROMBIN TIME 18.9 SEC (11.4-15.4)
[2017-07-21] MEDS: OXYCODONE HCL IR 5 MG TABLET PO PRN (07:31)
[2017-07-21 08:07] LABS: PLATELET COUNT 91 10^3/uL (150-450)
[2017-07-21] MEDS: HYDROMORPHONE HCL INJ/PF 2 MG/ML AMPULE IV PRN ×2 (09:37→22:34)
[2017-07-21] MEDS: PREGABALIN 75 MG CAPSULE PO SCH ×2 (09:37→18:24)
[2017-07-21] MEDS: LACTOBACILLUS ACIDOPHILUS 250 MG TAB PO SCH (09:37)
[2017-07-21] MEDS: MULTIVITAMIN TABLET PO SCH (09:37)
[2017-07-21] MEDS: OMEGA-3 ACID ETHYL ESTERS 1 GM CAPSULE PO SCH (09:37)
[2017-07-21] MEDS: LOSARTAN POTASSIUM 50 MG TABLET PO SCH (09:38)
[2017-07-21] MEDS: ACETAMINOPHEN 100 ML IV SCH (09:38)
[2017-07-21] MEDS: HYDROCHLOROTHIAZIDE 12.5 MG CAPSULE PO SCH (09:38)
[2017-07-21] MEDS: ENOXAPARIN SODIUM INJ 30 MG/0.3 ML DISP.SYRIN SUBCUT SCH ×2 (09:39→21:47)
[2017-07-21] MEDS: ACETAMINOPHEN 325 MG TABLET PO PRN ×2 (11:54→23:16)
--- NOTE | 2017-07-21 13:14 | RADIOLOGY REPORT (SQ) ---
EXAM DESCRIPTION: CHEST SINGLE VIEW COMPLETED DATE/TIME: 07/21/2017 12:42 pm REASON FOR STUDY: FUO COMPARISON: 06/23/2017. NUMBER OF VIEWS: One view. TECHNIQUE: Single frontal radiographic view of the chest acquired. LIMITATIONS: None. FINDINGS: LUNGS AND PLEURA: No opacities, masses or pneumothorax. No pleural effusion. MEDIASTINUM AND HILAR STRUCTURES: No masses. Contour normal. HEART AND VASCULAR STRUCTURES: Heart normal in size. Normal vasculature. BONES: No acute findings. HARDWARE: None in the chest. OTHER: No other significant finding. IMPRESSION: NO SIGNIFICANT RADIOGRAPHIC FINDING IN THE CHEST. TECHNICAL DOCUMENTATION: JOB ID: [id number] [employer] [facility] [employer]- All Rights Reserved
[2017-07-21] MEDS ORDERED: NORMAL SALINE 1000 ML 1,000 ML IV PRN (14:58)
--- NOTE | 2017-07-21 15:07 | PDOC CONSULTATION ---
Consultation Consult Date: 07/21/17 Attending physician:: SHERRY RIVAS Consult reason:: fever,low blood pressure History of Present Illness Admission Date/PCP: 07/19/17 05:18 NICHOLAS FIGUEROA MD History of Present Illness: JOCELYN MARCIAL is a 67 year old female, she was admitted on July 19, 2017 for elective left knee revision arthroplasty, medical consultation was requested for the comanagement of fever and low blood pressure. Patient is well -known to me from outpatient, she has a history of mitral valve replacement with mechanical valve on chronic coagulation with Coumadin. The procedure was done on 07/19/2017. She was seen by the bedside today she is coughing the cough is productive of sputum colored, chest x-ray was done was negative for any acute infiltrate to suggest pneumonia. She has a Mcgraw catheter in place, the potentia sources for infection could be respiratory, pneumonia, urinary system Past Medical History Cardiac Medical History: Reports: Atrial Fibrillation - Dx'ed approx 11 years ago, Hypertension, Heart Murmur - MV replacement [address] [facility] prosthesis Pulmonary Medical History: Reports: Asthma - Never hospitalized, Pneumonia - 2011, 2012, Sleep Apnea - "mild" GI Medical History: Reports: Gastroesophageal Reflux Disease - Nexium prn Musculoskeltal Medical History: Reports: Arthritis - Osteo Past Surgical History Past Surgical History: Reports: Appendectomy, Hysterectomy, Valve Replacement - [facility]K MV Social History Smoking Status: Never Smoker Hx Recreational Drug Use: No Hx Prescription Drug Abuse: No - Advance Directive Resuscitation Status: Full Code Family History Family History: Arthritis, CAD, CVA, DM, Hyperlipidemia, Hypertension, Malignancy, Thyroid Disfunction Parental Family History Reviewed: Yes Children Family History Reviewed: Yes Sibling(s) Family History Reviewed.: Yes Medication/Allergy Home Medications: Lactobacillus Acidophilus [Probiotic] 1 cap PO DAILY 07/19/17 Losartan/Hydrochlorothiazide [Hyzaar 100-12.5 Tablet] 1 tab PO DAILY 07/19/17 Multivitamin [One-A-Day Essential] 1 tab PO DAILY 07/19/17 [place]-3 Fatty Acids/Fish Oil [Fish Oil 1,000 mg Capsule] 1 cap PO DAILY Warfarin Sodium [Coumadin 5 mg Tablet] 5 mg PO DAILY 07/19/17 Allergies/Adverse Reactions: aspirin [Aspirin] Adverse Reaction (Mild, Verified 07/19/17 06:19) weak raw shrimp Allergy (Severe, Uncoded 12/23/16 17:58) Anaphylaxis Review of Systems Constitutional: ABSENT: chills, fever(s), headache(s), weight gain, weight loss Eyes: ABSENT: visual disturbances Ears: ABSENT: hearing changes Cardiovascular: ABSENT: chest pain, dyspnea on exertion, edema, orthropnea, palpitations Respiratory: PRESENT: cough Gastrointestinal: ABSENT: abdominal pain, constipation, diarrhea, hematemesis, hematochezia, nausea, vomiting Genitourinary: ABSENT: dysuria, hematuria Musculoskeletal: ABSENT: joint swelling Integumentary: ABSENT: rash, wounds Neurological: ABSENT: abnormal gait, abnormal speech, confusion, dizziness, focal weakness, syncope Psychiatric: ABSENT: anxiety, depression, homidical ideation, suicidal ideation Endocrine: ABSENT: cold intolerance, heat intolerance, menstrual abnormalities, polydipsia, polyuria Hematologic/Lymphatic: ABSENT: easy bleeding, easy bruising, lymphadenopathy Physical Exam Vital Signs: Temp Pulse Resp BP Pulse Ox 101.1 F H 108 H 15 80/37 L 97 07/21/17 12:00 07/21/17 08:00 07/21/17 12:00 07/21/17 12:00 07/21/17 12:00 Intake & Output 07/20/17 07/21/17 07/22/17 06:59 06:59 06:59 Intake Total 7922 450 0 Output Total 5650 2000 Balance 2272 -1550 0 General appearance: PRESENT: no acute distress, well-developed, well-nourished Head exam: PRESENT: atraumatic, normocephalic Eye exam: PRESENT: conjunctiva pink, EOMI, PERRLA Ear exam: PRESENT: normal external ear exam Mouth exam: PRESENT: moist, tongue midline Neck exam: PRESENT: full ROM Respiratory exam: PRESENT: clear to auscultation boby Cardiovascular exam: PRESENT: RRR, +S1, +S2 Vascular exam: PRESENT: normal capillary refill GI/Abdominal exam: PRESENT: normal bowel sounds, soft Rectal exam: PRESENT: deferred Neurological exam: PRESENT: alert, awake, oriented to person, oriented to place , oriented to time, oriented to situation, CN II-XII grossly intact Psychiatric exam: PRESENT: appropriate affect, normal mood Skin exam: PRESENT: dry, intact, warm Results Laboratory Results: 07/21/17 06:46 07/20/17 07:58 07/21/17 06:46 WBC 7.6 RBC 2.99 L Hgb 8.8 L Hct 26.3 L MCV 88 MCH 29.2 MCHC 33.2 RDW 15.0 H Plt Count 91 L Impressions: Knee X-Ray 07/19/17 00:00 IMPRESSION: SATISFACTORY POSTOPERATIVE LEFT KNEE. Chest X-Ray 07/21/17 00:00 IMPRESSION: NO SIGNIFICANT RADIOGRAPHIC FINDING IN THE CHEST. Assessment & Plan - Diagnosis (1) Fever Qualifiers: Fever type: unspecified Qualified Code(s): R50.9 - Fever, unspecified Is this a current diagnosis for this admission?: Yes Plan: The differential diagnosis is long, will request blood culture, urine culture, lactic acid hemogram compressive panel, we will empirically start patient on IV Levaquin since she is coughing with sputum production, though chest x-ray is negative for pneumonia at this time. (2) Hypotension Qualifiers: Hypotension type: unspecified hypotension type Qualified Code(s): I95.9 - Hypotension, unspecified Is this a current diagnosis for this admission?: Yes Plan: This is most likely due to volume loss she just had surgery, we will vigorously hydrated with IV fluid
[2017-07-21 16:02] LABS: ABSOLUTE LYMPHOCYTES (AUTO) 1.1 10^3/uL (0.5-4.7); ABSOLUTE MONOCYTES (AUTO) 0.8 10^3/uL (0.1-1.4); ABSOLUTE NEUT (AUTO) 5.3 10^3/uL (1.7-8.2); BASOPHILS % (AUTO) 0.4 % (0-2); EOSINOPHILS % (AUTO) 0.4 % (0-6); HEMATOCRIT 22.5 % (36.0-47.0); LYMPHOCYTES % (AUTO) 15.6 % (13-45); MEAN CORPUSCULAR HEMOGLOBIN 29.3 pg (27.0-33.4); MEAN CORPUSCULAR HGB CONC 33.1 g/dL (32.0-36.0); MEAN CORPUSCULAR VOLUME 89 fl (80-97); MONOCYTES % (AUTO) 10.4 % (3-13); PLATELET COUNT 117 10^3/uL (150-450); RED BLOOD COUNT 2.54 10^6/uL (3.72-5.28); RED CELL DISTRIBUTION WIDTH 15.1 % (11.5-14.0); SEGMENTED NEUTROPHILS % (AUTO) 73.2 % (42-78); TOTAL CELLS COUNTED % (AUTO) 100 %; WHITE BLOOD COUNT 7.3 10^3/uL (4.0-10.5)
[2017-07-21 16:05] LABS: HEMOGLOBIN 7.4 g/dL (12.0-15.5)
[2017-07-21 16:09] LABS: INTERNATIONAL RATION (INR) 1.68; PROTHROMBIN TIME 20.8 SEC (11.4-15.4)
[2017-07-21 16:20] LABS: ALANINE AMINOTRANSFERASE 39 U/L (9-52); ALBUMIN 2.7 g/dL (3.5-5.0); ALKALINE PHOSPHATASE 48 U/L (38-126); ASPARTATE AMINO TRANSFERASE 27 U/L (14-36); BILIRUBIN,DIRECT 0.3 mg/dL (0.0-0.4); BILIRUBIN,TOTAL 0.3 mg/dL (0.2-1.3); BLOOD UREA NITROGEN 14 mg/dL (7-20); CALCIUM 8.6 mg/dL (8.4-10.2); CHLORIDE 99 mmol/L (98-107); GLUCOSE 148 mg/dL (75-110); POTASSIUM 3.7 mmol/L (3.6-5.0); TOTAL PROTEIN 5.1 g/dL (6.3-8.2)
[2017-07-21 16:28] LABS: CARBON DIOXIDE 33 mmol/L (22-30); SODIUM 135.3 mmol/L (137-145)
[2017-07-21 16:37] LABS: ANION GAP 3 (5-19)
[2017-07-21 16:53] LABS: APPEARANCE,URINE CLEAR; BILIRUBIN,URINE NEGATIVE (NEGATIVE); COLOR,URINE YELLOW; GLUCOSE, URINE NEGATIVE (NEGATIVE); KETONES,URINE NEGATIVE (NEGATIVE); LEUKOCYTE ESTERASE,URINE NEGATIVE (NEGATIVE); NITRITE,URINE NEGATIVE (NEGATIVE); PROTEIN,URINE NEGATIVE (NEGATIVE); URINE SPECIFIC GRAVITY 1.013
[2017-07-21] MEDS: LEVOFLOXACIN 750 MG/D5W RTU 750 MG/150 ML RTUPB IV SCH (18:22)
[2017-07-21] MEDS: WARFARIN SODIUM 5 MG TABLET PO SCH (21:46)
[2017-07-22 04:59] LABS: HEMATOCRIT 22.5 % (36.0-47.0); MEAN CORPUSCULAR HGB CONC 33.2 g/dL (32.0-36.0); MEAN CORPUSCULAR VOLUME 88 fl (80-97); PLATELET COUNT 116 10^3/uL (150-450); RED BLOOD COUNT 2.57 10^6/uL (3.72-5.28); RED CELL DISTRIBUTION WIDTH 14.9 % (11.5-14.0); WHITE BLOOD COUNT 7.1 10^3/uL (4.0-10.5)
[2017-07-22 05:03] LABS: INTERNATIONAL RATION (INR) 1.78; PROTHROMBIN TIME 21.7 SEC (11.4-15.4)
[2017-07-22] MEDS: LANSOPRAZOLE 30 MG TAB.RAP.DR PO SCH (05:13)
[2017-07-22 05:32] LABS: HEMOGLOBIN 7.4 g/dL (12.0-15.5)
[2017-07-22] MEDS ORDERED: NORMAL SALINE 250 ML IV PRN (06:15)
--- NOTE | 2017-07-22 07:05 | PDOC PROGRESS REPORT ---
Subjective Progress Note for:: 07/22/17 Reason For Visit: Z96.652 PRESENCE OF LEFT ARTIFICIAL KNEE JOINT 67-year-old black female status post left knee revision arthroplasty who developed issues with pulmonary congestion, hypotension, and constitutional symptoms yesterday. She was moved to the intermediate care unit. The patient is complaining of a headache today that she attributes to the use of Lovenox. Lovenox as bridging as her Coumadin has been restarted. Current hematocrit is 22% and INR is 1.78 Physical Exam Vital Signs: Temp Pulse Resp BP Pulse Ox 38.1 C H 70 18 92/57 L 100 07/22/17 03:38 07/22/17 03:38 07/22/17 03:38 07/22/17 03:38 07/22/17 03:38 Intake & Output 07/21/17 07/22/17 07/23/17 06:59 06:59 06:59 Intake Total 450 1108 Output Total 2000 500 Balance -1550 608 Weight 93.6 kg General appearance: PRESENT: no acute distress Head exam: PRESENT: normocephalic Respiratory exam: PRESENT: unlabored Cardiovascular exam: PRESENT: RRR Pulses: PRESENT: +1 pedal pulses bilateral Vascular exam: PRESENT: normal capillary refill GI/Abdominal exam: PRESENT: soft Rectal exam: PRESENT: deferred Extremities exam: PRESENT: other - Left knee dressing is clean dry and intact. Patient is able to do a straight leg raise today. Neurological exam: PRESENT: alert, awake, oriented to person, oriented to place , oriented to time, oriented to situation. ABSENT: motor sensory deficit Psychiatric exam: PRESENT: appropriate affect, normal mood. ABSENT: homicidal ideation, suicidal ideation Results Laboratory Results: 07/22/17 04:30 07/21/17 15:53 07/21/17 07/21/17 07/21/17 06:46 15:53 15:53 WBC 7.6 7.3 RBC 2.99 L 2.54 L Hgb 8.8 L 7.4 L Hct 26.3 L 22.5 L MCV 88 89 MCH 29.2 29.3 MCHC 33.2 33.1 RDW 15.0 H 15.1 H Plt Count 91 L 117 L Seg Neutrophils % 73.2 Lymphocytes % 15.6 Monocytes % 10.4 Eosinophils % 0.4 Basophils % 0.4 Absolute Neutrophils 5.3 Absolute Lymphocytes 1.1 Absolute Monocytes 0.8 Absolute Eosinophils 0.0 Absolute Basophils 0.0 Sodium 135.3 L Potassium 3.7 Chloride 99 Carbon Dioxide 33 H Anion Gap 3 L BUN 14 Creatinine 1.06 Est GFR ( Amer) > 60 Est GFR (Non-Af Amer) 52 L Glucose 148 H Lactic Acid Calcium 8.6 Total Bilirubin 0.3 AST 27 ALT 39 Alkaline Phosphatase 48 Total Protein 5.1 L Albumin 2.7 L Urine Color Urine Appearance Urine pH Ur Specific [place] Urine Protein Urine Glucose (UA) Urine Ketones Urine Blood Urine Nitrite Ur Leukocyte Esterase Urine WBC (Auto) Urine RBC (Auto) 07/21/17 07/21/17 07/22/17 16:20 17:00 04:30 WBC 7.1 RBC 2.57 L Hgb 7.4 L Hct 22.5 L MCV 88 MCH 29.0 MCHC 33.2 RDW 14.9 H Plt Count 116 L Seg Neutrophils % Lymphocytes % Monocytes % Eosinophils % Basophils % Absolute Neutrophils Absolute Lymphocytes Absolute Monocytes Absolute Eosinophils Absolute Basophils Sodium Potassium Chloride Carbon Dioxide Anion Gap BUN Creatinine Est GFR ( Amer) Est GFR (Non-Af Amer) Glucose Lactic Acid 1.0 Calcium Total Bilirubin AST ALT Alkaline Phosphatase Total Protein Albumin Urine Color YELLOW Urine Appearance CLEAR Urine pH 5.0 Ur Specific [place] 1.013 Urine Protein NEGATIVE Urine Glucose (UA) NEGATIVE Urine Ketones NEGATIVE Urine Blood NEGATIVE Urine Nitrite NEGATIVE Ur Leukocyte Esterase NEGATIVE Urine WBC (Auto) 4 Urine RBC (Auto) 1 Impressions: Knee X-Ray 07/19/17 00:00 IMPRESSION: SATISFACTORY POSTOPERATIVE LEFT KNEE. Chest X-Ray 07/21/17 00:00 IMPRESSION: NO SIGNIFICANT RADIOGRAPHIC FINDING IN THE CHEST. Status: Imported from PACS Assessment & Plan - Diagnosis (1) Mechanical complication of knee prosthesis Is this a current diagnosis for this admission?: Yes Plan: Continue with physical therapy and weightbearing as tolerated toward basis. (2) Chronic anticoagulation Is this a current diagnosis for this admission?: Yes Plan: INR has increased to 1.78. Tentative plan will be to increase it to approximately 3. At that point Lovenox can be discontinued. (3) Acute blood loss as cause of postoperative anemia Is this a current diagnosis for this admission?: Yes Plan: Patient hematocrit dropped to 22%. She received 2 units of packed red blood cells today and repeat labs in the morning. - Time Time Spent with patient: 15-24 minutes Anticipated discharge: Home with Homehealth Within: Other
[2017-07-22] MEDS: ENOXAPARIN SODIUM INJ 30 MG/0.3 ML DISP.SYRIN SUBCUT SCH ×2 (09:58→22:09)
[2017-07-22] MEDS: LOSARTAN POTASSIUM 50 MG TABLET PO SCH (10:02)
[2017-07-22] MEDS: OXYCODONE HCL IR 5 MG TABLET PO PRN (10:03)
[2017-07-22] MEDS: OMEGA-3 ACID ETHYL ESTERS 1 GM CAPSULE PO SCH (10:03)
[2017-07-22] MEDS: LACTOBACILLUS ACIDOPHILUS 250 MG TAB PO SCH (10:03)
[2017-07-22] MEDS: MULTIVITAMIN TABLET PO SCH (10:03)
[2017-07-22] MEDS: PREGABALIN 75 MG CAPSULE PO SCH ×2 (10:03→17:54)
[2017-07-22] MEDS: HYDROCHLOROTHIAZIDE 12.5 MG CAPSULE PO SCH (10:04)
[2017-07-22] MEDS: ACETAMINOPHEN 325 MG TABLET PO PRN ×2 (10:40→18:00)
[2017-07-22] MEDS: HYDROMORPHONE HCL INJ/PF 2 MG/ML AMPULE IV PRN ×2 (13:45→20:34)
[2017-07-22 15:39] LABS: INTERNATIONAL RATION (INR) 1.95; PROTHROMBIN TIME 23.3 SEC (11.4-15.4)
[2017-07-22] MEDS: LEVOFLOXACIN 750 MG/D5W RTU 750 MG/150 ML RTUPB IV SCH (17:54)
[2017-07-22] MEDS ORDERED: BISACODYL 5 MG TABEC PO ONE (19:20)
--- NOTE | 2017-07-22 21:20 | PDOC PROGRESS REPORT ---
Subjective Progress Note for:: 07/22/17 Subjective:: She was seen by the bedside, she was transferred to a monitored bed in [facility] because she developed tachycardia on the floor last night. She received blood transfusion this morning, reduce the infusion rate Reason For Visit: AFIB WITH RVR Physical Exam Vital Signs: Temp Pulse Resp BP Pulse Ox 99.0 F 97 20 116/51 L 100 07/22/17 20:08 07/22/17 20:08 07/22/17 20:08 07/22/17 20:08 07/22/17 20:08 Intake & Output 07/21/17 07/22/17 07/23/17 06:59 06:59 06:59 Intake Total 450 1736 1992 Output Total 2000 1100 600 Balance -5958 053 1164 Weight 93.3 kg General appearance: PRESENT: no acute distress, well-developed, well-nourished Head exam: PRESENT: atraumatic, normocephalic Eye exam: PRESENT: conjunctiva pink, EOMI, PERRLA Ear exam: PRESENT: normal external ear exam Mouth exam: PRESENT: moist, tongue midline Neck exam: PRESENT: full ROM Respiratory exam: PRESENT: clear to auscultation boby Cardiovascular exam: PRESENT: RRR, +S1, +S2 Pulses: PRESENT: normal dorsalis pedis pul, +2 pedal pulses bilateral Vascular exam: PRESENT: normal capillary refill GI/Abdominal exam: PRESENT: normal bowel sounds, soft Rectal exam: PRESENT: deferred Neurological exam: PRESENT: alert Psychiatric exam: PRESENT: appropriate affect, normal mood Skin exam: PRESENT: dry, intact, warm Results Laboratory Results: 07/22/17 04:30 07/21/17 15:53 07/22/17 07/22/17 04:30 07:45 WBC 7.1 RBC 2.57 L Hgb 7.4 L Hct 22.5 L MCV 88 MCH 29.0 MCHC 33.2 RDW 14.9 H Plt Count 116 L Blood Type B POSITIVE Antibody Screen NEGATIVE 07/19/17 07:48 Knee - Left Gram Stain - Final 07/19/17 07:50 Knee - Left Gram Stain - Final Impressions: Knee X-Ray 07/19/17 00:00 IMPRESSION: SATISFACTORY POSTOPERATIVE LEFT KNEE. Chest X-Ray 07/21/17 00:00 IMPRESSION: NO SIGNIFICANT RADIOGRAPHIC FINDING IN THE CHEST. Assessment & Plan - Diagnosis (1) Fever Qualifiers: Fever type: unspecified Qualified Code(s): R50.9 - Fever, unspecified Is this a current diagnosis for this admission?: Yes (2) Hypotension Qualifiers: Hypotension type: unspecified hypotension type Qualified Code(s): I95.9 - Hypotension, unspecified Is this a current diagnosis for this admission?: Yes
[2017-07-22] MEDS: WARFARIN SODIUM 5 MG TABLET PO SCH (22:09)
[2017-07-22 22:10] LABS: ABSOLUTE EOSINOPHILS # (AUTO) 0.2 10^3/uL (0.0-0.6); ABSOLUTE LYMPHOCYTES (AUTO) 1.3 10^3/uL (0.5-4.7); ABSOLUTE MONOCYTES (AUTO) 0.7 10^3/uL (0.1-1.4); ABSOLUTE NEUT (AUTO) 5.2 10^3/uL (1.7-8.2); BASOPHILS % (AUTO) 0.4 % (0-2); EOSINOPHILS % (AUTO) 2.7 % (0-6); HEMATOCRIT 28.9 % (36.0-47.0); MEAN CORPUSCULAR HEMOGLOBIN 29.8 pg (27.0-33.4); MEAN CORPUSCULAR HGB CONC 34.4 g/dL (32.0-36.0); MEAN CORPUSCULAR VOLUME 87 fl (80-97); PLATELET COUNT 137 10^3/uL (150-450); RED BLOOD COUNT 3.34 10^6/uL (3.72-5.28); RED CELL DISTRIBUTION WIDTH 14.5 % (11.5-14.0); SEGMENTED NEUTROPHILS % (AUTO) 69.9 % (42-78); TOTAL CELLS COUNTED % (AUTO) 100 %; WHITE BLOOD COUNT 7.4 10^3/uL (4.0-10.5)
[2017-07-22 22:11] LABS: HEMOGLOBIN 9.9 g/dL (12.0-15.5)
[2017-07-23] MEDS: HYDROMORPHONE HCL INJ/PF 2 MG/ML AMPULE IV PRN ×5 (02:55→21:18)
[2017-07-23 05:03] LABS: HEMATOCRIT 28.3 % (36.0-47.0); HEMOGLOBIN 9.5 g/dL (12.0-15.5); MEAN CORPUSCULAR HEMOGLOBIN 29.1 pg (27.0-33.4); MEAN CORPUSCULAR HGB CONC 33.8 g/dL (32.0-36.0); MEAN CORPUSCULAR VOLUME 86 fl (80-97); PLATELET COUNT 148 10^3/uL (150-450); RED BLOOD COUNT 3.28 10^6/uL (3.72-5.28); RED CELL DISTRIBUTION WIDTH 14.6 % (11.5-14.0); WHITE BLOOD COUNT 7.4 10^3/uL (4.0-10.5)
[2017-07-23 05:13] LABS: INTERNATIONAL RATION (INR) 1.86; PROTHROMBIN TIME 22.5 SEC (11.4-15.4)
[2017-07-23 05:25] LABS: ANION GAP 7 (5-19); BLOOD UREA NITROGEN 9 mg/dL (7-20); CALCIUM 8.3 mg/dL (8.4-10.2); CARBON DIOXIDE 31 mmol/L (22-30); CHLORIDE 102 mmol/L (98-107); GLUCOSE 124 mg/dL (75-110); POTASSIUM 3.7 mmol/L (3.6-5.0); SODIUM 139.8 mmol/L (137-145)
[2017-07-23] MEDS: LANSOPRAZOLE 30 MG TAB.RAP.DR PO SCH (05:53)
[2017-07-23] MEDS: NORMAL SALINE 1000 ML 1,000 ML IV PRN (05:55)
[2017-07-23] MEDS: ACETAMINOPHEN 325 MG TABLET PO PRN ×2 (07:47→13:55)
[2017-07-23] MEDS: OXYCODONE HCL IR 5 MG TABLET PO PRN ×2 (07:47→13:54)
[2017-07-23] MEDS: MULTIVITAMIN TABLET PO SCH (10:10)
[2017-07-23] MEDS: PREGABALIN 75 MG CAPSULE PO SCH ×2 (10:10→17:00)
[2017-07-23] MEDS: OMEGA-3 ACID ETHYL ESTERS 1 GM CAPSULE PO SCH (10:11)
[2017-07-23] MEDS: DIPHENHYDRAMINE HCL 50 MG/ML VIAL IV PRN ×2 (10:11→18:52)
[2017-07-23] MEDS: HYDROCHLOROTHIAZIDE 12.5 MG CAPSULE PO SCH (10:14)
[2017-07-23] MEDS: LOSARTAN POTASSIUM 50 MG TABLET PO SCH (10:14)
[2017-07-23] MEDS: LACTOBACILLUS ACIDOPHILUS 250 MG TAB PO SCH (10:14)
[2017-07-23] MEDS: ENOXAPARIN SODIUM INJ 30 MG/0.3 ML DISP.SYRIN SUBCUT SCH ×2 (11:38→21:18)
[2017-07-23 15:36] LABS: INTERNATIONAL RATION (INR) 1.88; PROTHROMBIN TIME 22.7 SEC (11.4-15.4)
[2017-07-23] MEDS: LEVOFLOXACIN 750 MG TABLET PO SCH (17:01)
[2017-07-23] MEDS: WARFARIN SODIUM 5 MG TABLET PO SCH (21:19)
--- NOTE | 2017-07-23 21:24 | PDOC PROGRESS REPORT ---
Subjective Progress Note for:: 07/23/17 Subjective:: She is improving, the Lovenox injection was narrowed because of low platelet, she has a mechanical heart valve, the Lovenox to be continued with Coumadin until INR is between 2.5-3.5 then the Lovenox can be discontinued Reason For Visit: AFIB WITH RVR Physical Exam Vital Signs: Temp Pulse Resp BP Pulse Ox 98.8 F 101 H 18 112/61 99 07/23/17 20:02 07/23/17 20:02 07/23/17 20:02 07/23/17 20:02 07/23/17 20:02 Intake & Output 07/22/17 07/23/17 07/24/17 06:59 06:59 06:59 Intake Total 1736 3587 1526 Output Total 1100 2400 400 Balance 636 1187 1126 Weight 93.3 kg 93.5 kg General appearance: PRESENT: no acute distress, well-developed, well-nourished Head exam: PRESENT: atraumatic, normocephalic Eye exam: PRESENT: conjunctiva pink, EOMI, PERRLA Ear exam: PRESENT: normal external ear exam Mouth exam: PRESENT: moist, tongue midline Neck exam: PRESENT: full ROM Respiratory exam: PRESENT: clear to auscultation boby Cardiovascular exam: PRESENT: RRR, +S1, +S2 Pulses: PRESENT: normal dorsalis pedis pul, +2 pedal pulses bilateral Vascular exam: PRESENT: normal capillary refill GI/Abdominal exam: PRESENT: normal bowel sounds, soft Rectal exam: PRESENT: deferred Neurological exam: PRESENT: alert, awake, oriented to person, oriented to place , oriented to time, oriented to situation, CN II-XII grossly intact Psychiatric exam: PRESENT: appropriate affect, normal mood Skin exam: PRESENT: dry, intact, warm Results Laboratory Results: 07/23/17 04:11 07/23/17 04:11 07/22/17 07/23/17 07/23/17 21:25 04:11 04:11 WBC 7.4 7.4 RBC 3.34 L 3.28 L Hgb 9.9 L D 9.5 L Hct 28.9 L 28.3 L MCV 87 86 MCH 29.8 29.1 MCHC 34.4 33.8 RDW 14.5 H 14.6 H Plt Count 137 L 148 L Seg Neutrophils % 69.9 Lymphocytes % 18.0 Monocytes % 9.0 Eosinophils % 2.7 Basophils % 0.4 Absolute Neutrophils 5.2 Absolute Lymphocytes 1.3 Absolute Monocytes 0.7 Absolute Eosinophils 0.2 Absolute Basophils 0.0 Sodium 139.8 Potassium 3.7 Chloride 102 Carbon Dioxide 31 H Anion Gap 7 BUN 9 Creatinine 0.72 Est GFR ( Amer) > 60 Est GFR (Non-Af Amer) > 60 Glucose 124 H Calcium 8.3 L 07/19/17 07:50 Knee - Left Gram Stain - Final 07/19/17 07:50 Knee - Left Wound Culture - Final NO AEROBIC OR ANAEROBIC ORGANISMS RECOVERED 07/19/17 07:48 Knee - Left Gram Stain - Final 07/19/17 07:48 Knee - Left Wound Culture - Final NO AEROBIC OR ANAEROBIC ORGANISMS RECOVERED 07/21/17 16:20 Catheterized Urine Urine Culture - Final NO GROWTH 2 DAYS Impressions: Knee X-Ray 07/19/17 00:00 IMPRESSION: SATISFACTORY POSTOPERATIVE LEFT KNEE. Chest X-Ray 07/21/17 00:00 IMPRESSION: NO SIGNIFICANT RADIOGRAPHIC FINDING IN THE CHEST. Assessment & Plan - Diagnosis (1) Fever Qualifiers: Fever type: unspecified Qualified Code(s): R50.9 - Fever, unspecified Is this a current diagnosis for this admission?: Yes (2) Hypotension Qualifiers: Hypotension type: unspecified hypotension type Qualified Code(s): I95.9 - Hypotension, unspecified Is this a current diagnosis for this admission?: Yes
[2017-07-24] MEDS: ACETAMINOPHEN 325 MG TABLET PO PRN (00:06)
[2017-07-24] MEDS: OXYCODONE HCL IR 5 MG TABLET PO PRN ×3 (03:27→22:44)
[2017-07-24] MEDS: HYDROMORPHONE HCL INJ/PF 2 MG/ML AMPULE IV PRN ×3 (05:03→18:41)
[2017-07-24] MEDS: LANSOPRAZOLE 30 MG TAB.RAP.DR PO SCH (05:03)
[2017-07-24 06:24] LABS: INTERNATIONAL RATION (INR) 2.31; PROTHROMBIN TIME 26.6 SEC (11.4-15.4)
[2017-07-24] MEDS: NORMAL SALINE 1000 ML 1,000 ML IV PRN (06:49)
[2017-07-24] MEDS: OMEGA-3 ACID ETHYL ESTERS 1 GM CAPSULE PO SCH (11:26)
[2017-07-24] MEDS: LOSARTAN POTASSIUM 50 MG TABLET PO SCH (11:27)
[2017-07-24] MEDS: HYDROCHLOROTHIAZIDE 12.5 MG CAPSULE PO SCH (11:27)
[2017-07-24] MEDS: ENOXAPARIN SODIUM INJ 30 MG/0.3 ML DISP.SYRIN SUBCUT SCH ×2 (11:28→22:45)
[2017-07-24] MEDS: LACTOBACILLUS ACIDOPHILUS 250 MG TAB PO SCH (11:28)
[2017-07-24] MEDS: MULTIVITAMIN TABLET PO SCH (11:28)
[2017-07-24] MEDS: PREGABALIN 75 MG CAPSULE PO SCH ×2 (11:28→18:42)
--- NOTE | 2017-07-24 14:25 | PDOC PROGRESS REPORT ---
Subjective Progress Note for:: 07/24/17 Subjective:: Patient lying in bed comfortably. No issues overnight. States pain is improving. Denies any complaints feels that therapy is progressing appropriately. Reason For Visit: AFIB WITH RVR Physical Exam Vital Signs: Temp Pulse Resp BP Pulse Ox 99.9 F 88 16 126/62 H 93 07/24/17 12:43 07/24/17 12:43 07/24/17 12:43 07/24/17 12:43 07/24/17 12:43 Intake & Output 07/23/17 07/24/17 07/25/17 06:59 06:59 06:59 Intake Total 3737 3585 Output Total 2400 400 Balance 1337 3185 Weight 93.5 kg Musculoskeletal exam: PRESENT: other - Left knee: Dressing clean/dry/intact no erythema or drainage. Knee range of motion 0-102. No calf tenderness. Intact plantar flexion/dorsiflexion. Results Laboratory Results: 07/23/17 04:11 07/23/17 04:11 07/19/17 07:50 Knee - Left Gram Stain - Final 07/19/17 07:50 Knee - Left Wound Culture - Final NO AEROBIC OR ANAEROBIC ORGANISMS RECOVERED 07/19/17 07:48 Knee - Left Gram Stain - Final 07/19/17 07:48 Knee - Left Wound Culture - Final NO AEROBIC OR ANAEROBIC ORGANISMS RECOVERED Impressions: Knee X-Ray 07/19/17 00:00 IMPRESSION: SATISFACTORY POSTOPERATIVE LEFT KNEE. Chest X-Ray 07/21/17 00:00 IMPRESSION: NO SIGNIFICANT RADIOGRAPHIC FINDING IN THE CHEST. Assessment & Plan - Diagnosis (1) Mechanical complication of knee prosthesis Is this a current diagnosis for this admission?: Yes Plan: Patient status post revision left knee arthroplasty. She states she is doing well. She will continue physical therapy. We will continue her Lovenox until her INR is around 3. Currently is 2.3 thus anticipate will be able to DC the Lovenox in 24 hours.
[2017-07-24 15:28] LABS: ABSOLUTE EOSINOPHILS # (AUTO) 0.2 10^3/uL (0.0-0.6); ABSOLUTE LYMPHOCYTES (AUTO) 1.1 10^3/uL (0.5-4.7); ABSOLUTE MONOCYTES (AUTO) 0.5 10^3/uL (0.1-1.4); ABSOLUTE NEUT (AUTO) 4.9 10^3/uL (1.7-8.2); BASOPHILS % (AUTO) 0.5 % (0-2); HEMATOCRIT 30.4 % (36.0-47.0); HEMOGLOBIN 10.1 g/dL (12.0-15.5); LYMPHOCYTES % (AUTO) 16.2 % (13-45); MEAN CORPUSCULAR HEMOGLOBIN 28.8 pg (27.0-33.4); MEAN CORPUSCULAR HGB CONC 33.2 g/dL (32.0-36.0); MEAN CORPUSCULAR VOLUME 87 fl (80-97); MONOCYTES % (AUTO) 7.1 % (3-13); PLATELET COUNT 198 10^3/uL (150-450); RED CELL DISTRIBUTION WIDTH 14.3 % (11.5-14.0); SEGMENTED NEUTROPHILS % (AUTO) 73.2 % (42-78); TOTAL CELLS COUNTED % (AUTO) 100 %; WHITE BLOOD COUNT 6.7 10^3/uL (4.0-10.5)
[2017-07-24 15:33] LABS: INTERNATIONAL RATION (INR) 2.42; PROTHROMBIN TIME 27.6 SEC (11.4-15.4)
[2017-07-24 15:47] LABS: ALANINE AMINOTRANSFERASE 43 U/L (9-52); ALBUMIN 3.2 g/dL (3.5-5.0); ALKALINE PHOSPHATASE 69 U/L (38-126); ANION GAP 8 (5-19); ASPARTATE AMINO TRANSFERASE 34 U/L (14-36); BILIRUBIN,TOTAL 0.7 mg/dL (0.2-1.3); BLOOD UREA NITROGEN 9 mg/dL (7-20); CALCIUM 9.1 mg/dL (8.4-10.2); CARBON DIOXIDE 33 mmol/L (22-30); CHLORIDE 99 mmol/L (98-107); GLUCOSE 135 mg/dL (75-110); POTASSIUM 3.5 mmol/L (3.6-5.0); TOTAL PROTEIN 5.5 g/dL (6.3-8.2)
[2017-07-24] MEDS: LEVOFLOXACIN 750 MG TABLET PO SCH (18:42)
[2017-07-24] MEDS: WARFARIN SODIUM 5 MG TABLET PO SCH (22:44)
[2017-07-25] MEDS: HYDROMORPHONE HCL INJ/PF 2 MG/ML AMPULE IV PRN ×4 (03:37→20:11)
[2017-07-25] MEDS: LANSOPRAZOLE 30 MG TAB.RAP.DR PO SCH (06:48)
[2017-07-25] MEDS: NORMAL SALINE 1000 ML 1,000 ML IV PRN (08:48)
[2017-07-25] MEDS: HYDROCHLOROTHIAZIDE 12.5 MG CAPSULE PO SCH (10:54)
[2017-07-25] MEDS: LACTOBACILLUS ACIDOPHILUS 250 MG TAB PO SCH (10:54)
[2017-07-25] MEDS: LOSARTAN POTASSIUM 50 MG TABLET PO SCH (10:55)
[2017-07-25] MEDS: PREGABALIN 75 MG CAPSULE PO SCH ×2 (10:55→18:56)
[2017-07-25] MEDS: MULTIVITAMIN TABLET PO SCH (10:55)
[2017-07-25] MEDS: OMEGA-3 ACID ETHYL ESTERS 1 GM CAPSULE PO SCH (10:55)
[2017-07-25] MEDS: OXYCODONE HCL IR 5 MG TABLET PO PRN (13:02)
--- NOTE | 2017-07-25 13:55 | PDOC PROGRESS REPORT ---
Subjective Subjective:: Patient lying in bed comfortably. No issues overnight. States pain is improving. Denies any complaints feels that therapy is progressing appropriately. Reason For Visit: AFIB WITH RVR Physical Exam Vital Signs: Temp Pulse Resp BP Pulse Ox 99.5 F 89 19 118/69 98 07/25/17 07:51 07/25/17 07:51 07/25/17 07:51 07/25/17 07:51 07/25/17 07:51 Intake & Output 07/24/17 07/25/17 07/26/17 06:59 06:59 06:59 Intake Total 3585 2650 Output Total 400 Balance 3185 2650 Musculoskeletal exam: PRESENT: other - Left knee: Dressing clean/dry/intact no erythema or drainage. Minimal effusion. No calf tenderness. Intact plantar flexion/dorsiflexion. No sensory deficits. Results Laboratory Results: 07/24/17 15:10 07/24/17 15:10 07/24/17 07/24/17 15:10 15:10 WBC 6.7 RBC 3.50 L Hgb 10.1 L Hct 30.4 L MCV 87 MCH 28.8 MCHC 33.2 RDW 14.3 H Plt Count 198 Seg Neutrophils % 73.2 Lymphocytes % 16.2 Monocytes % 7.1 Eosinophils % 3.0 Basophils % 0.5 Absolute Neutrophils 4.9 Absolute Lymphocytes 1.1 Absolute Monocytes 0.5 Absolute Eosinophils 0.2 Absolute Basophils 0.0 Sodium 140.0 Potassium 3.5 L Chloride 99 Carbon Dioxide 33 H Anion Gap 8 BUN 9 Creatinine 0.75 Est GFR ( Amer) > 60 Est GFR (Non-Af Amer) > 60 Glucose 135 H Calcium 9.1 Total Bilirubin 0.7 AST 34 ALT 43 Alkaline Phosphatase 69 Total Protein 5.5 L Albumin 3.2 L Impressions: Knee X-Ray 07/19/17 00:00 IMPRESSION: SATISFACTORY POSTOPERATIVE LEFT KNEE. Chest X-Ray 07/21/17 00:00 IMPRESSION: NO SIGNIFICANT RADIOGRAPHIC FINDING IN THE CHEST. Assessment & Plan - Diagnosis (1) Mechanical complication of knee prosthesis Is this a current diagnosis for this admission?: Yes Plan: Patient status post revision left knee arthroplasty. She states she is doing well. She will continue physical therapy. We will continue her Lovenox until her INR is around 3. Currently is 2.4 current INR pending
[2017-07-25 15:00] LABS: PROTHROMBIN TIME 27.4 SEC (11.4-15.4)
[2017-07-25] MEDS ORDERED: LACTULOSE SYRUP 20 GM/30 ML UDCUP PO ONE (18:30)
[2017-07-25] MEDS: ACETAMINOPHEN 325 MG TABLET PO PRN (18:56)
[2017-07-25] MEDS: LEVOFLOXACIN 750 MG TABLET PO SCH (18:56)
[2017-07-25] MEDS: WARFARIN SODIUM 5 MG TABLET PO SCH (22:33)
[2017-07-26] MEDS: OXYCODONE HCL IR 5 MG TABLET PO PRN ×4 (01:33→19:04)
[2017-07-26] MEDS: ACETAMINOPHEN 325 MG TABLET PO PRN ×4 (03:14→20:26)
[2017-07-26] MEDS: LANSOPRAZOLE 30 MG TAB.RAP.DR PO SCH (05:17)
[2017-07-26 05:38] LABS: INTERNATIONAL RATION (INR) 2.48; PROTHROMBIN TIME 28.1 SEC (11.4-15.4)
[2017-07-26 08:12] LABS: PROTHROMBIN TIME 27.4 SEC (11.4-15.4)
[2017-07-26] MEDS: HYDROCHLOROTHIAZIDE 12.5 MG CAPSULE PO SCH (09:04)
[2017-07-26] MEDS: OMEGA-3 ACID ETHYL ESTERS 1 GM CAPSULE PO SCH (09:04)
[2017-07-26] MEDS: LACTOBACILLUS ACIDOPHILUS 250 MG TAB PO SCH (09:04)
[2017-07-26] MEDS: MULTIVITAMIN TABLET PO SCH (09:05)
[2017-07-26] MEDS: PREGABALIN 75 MG CAPSULE PO SCH ×2 (09:05→17:24)
[2017-07-26] MEDS: LOSARTAN POTASSIUM 50 MG TABLET PO SCH (09:06)
[2017-07-26] MEDS: LEVOFLOXACIN 750 MG TABLET PO SCH (17:23)
[2017-07-26] MEDS ORDERED: NA PHOS,M-B/NA PHOS,DI-BA (ADULT) 133 ML ENEMA PR PRN (18:31)
--- NOTE | 2017-07-26 21:24 | PDOC PROGRESS REPORT ---
Subjective Progress Note for:: 07/26/17 Subjective:: She complained of constipation, INR is 2.4, she has a mechanical heart valve, will increase warfarin to 7.5 p.o. tonight Reason For Visit: AFIB WITH RVR Physical Exam Vital Signs: Temp Pulse Resp BP Pulse Ox 99.4 F 100 16 113/51 L 100 07/26/17 17:41 07/26/17 19:00 07/26/17 17:41 07/26/17 17:41 07/26/17 17:41 Intake & Output 07/25/17 07/26/17 07/27/17 06:59 06:59 06:59 Intake Total 2650 4980 500 Output Total 0 Balance 2650 4980 500 Weight 93.1 kg General appearance: PRESENT: no acute distress Eye exam: PRESENT: PERRLA Respiratory exam: PRESENT: clear to auscultation boby Cardiovascular exam: PRESENT: +S1, +S2 GI/Abdominal exam: PRESENT: soft Neurological exam: PRESENT: alert Results Laboratory Results: 07/24/17 15:10 07/24/17 15:10 07/21/17 17:00 Blood Blood Culture - Final NO GROWTH IN 5 DAYS 07/21/17 15:53 Blood Blood Culture - Final NO GROWTH IN 5 DAYS Impressions: Knee X-Ray 07/19/17 00:00 IMPRESSION: SATISFACTORY POSTOPERATIVE LEFT KNEE. Chest X-Ray 07/21/17 00:00 IMPRESSION: NO SIGNIFICANT RADIOGRAPHIC FINDING IN THE CHEST. Assessment & Plan - Diagnosis (1) Fever Qualifiers: Fever type: unspecified Qualified Code(s): R50.9 - Fever, unspecified Is this a current diagnosis for this admission?: Yes (2) Hypotension Qualifiers: Hypotension type: unspecified hypotension type Qualified Code(s): I95.9 - Hypotension, unspecified Is this a current diagnosis for this admission?: Yes
[2017-07-26] MEDS ORDERED: WARFARIN SODIUM 7.5 MG TABLET PO ONE (22:00)
[2017-07-27] MEDS: OXYCODONE HCL IR 5 MG TABLET PO PRN ×2 (01:19→07:42)
[2017-07-27] MEDS: ACETAMINOPHEN 325 MG TABLET PO PRN (04:59)
[2017-07-27] MEDS: LANSOPRAZOLE 30 MG TAB.RAP.DR PO SCH (05:00)
--- NOTE | 2017-07-27 07:10 | PDOC PROGRESS REPORT ---
Subjective Progress Note for:: 07/27/17 Reason For Visit: AFIB WITH RVR 67-year-old black female postop day 7 left knee revision arthroplasty Physical Exam Vital Signs: Temp Pulse Resp BP Pulse Ox 37.4 C 90 16 113/51 L 100 07/26/17 17:41 07/27/17 02:00 07/26/17 17:41 07/26/17 17:41 07/26/17 17:41 Intake & Output 07/26/17 07/27/17 07/28/17 06:59 06:59 06:59 Intake Total 4980 1000 Output Total 0 Balance 4980 1000 Weight 93.1 kg General appearance: PRESENT: mild distress Head exam: PRESENT: normocephalic Respiratory exam: PRESENT: unlabored Cardiovascular exam: PRESENT: RRR Pulses: PRESENT: +1 pedal pulses bilateral GI/Abdominal exam: PRESENT: soft Rectal exam: PRESENT: deferred Extremities exam: PRESENT: other - Left knee dressing clean dry and intact. Tenderness about the knee. Distally there is minimal pedal edema. Neurovascular examination is intact. Psychiatric exam: PRESENT: appropriate affect, normal mood. ABSENT: homicidal ideation, suicidal ideation Skin exam: PRESENT: dry, intact, warm. ABSENT: cyanosis, rash Results Laboratory Results: 07/24/17 15:10 07/24/17 15:10 07/21/17 17:00 Blood Blood Culture - Final NO GROWTH IN 5 DAYS 07/21/17 15:53 Blood Blood Culture - Final NO GROWTH IN 5 DAYS Impressions: Knee X-Ray 07/19/17 00:00 IMPRESSION: SATISFACTORY POSTOPERATIVE LEFT KNEE. Chest X-Ray 07/21/17 00:00 IMPRESSION: NO SIGNIFICANT RADIOGRAPHIC FINDING IN THE CHEST. Status: Imported from PACS Assessment & Plan - Diagnosis (1) Mechanical complication of knee prosthesis Is this a current diagnosis for this admission?: Yes Plan: Making some progress with physical therapy (2) Chronic anticoagulation Is this a current diagnosis for this admission?: Yes Plan: INR is 2.4 yesterday. Lovenox will be continued. (3) Acute blood loss as cause of postoperative anemia Is this a current diagnosis for this admission?: Yes Plan: Stable - Time Time Spent with patient: 15-24 minutes Anticipated discharge: Home with Homehealth Within: Other
[2017-07-27 09:26] LABS: HEMATOCRIT 29.8 % (36.0-47.0); MEAN CORPUSCULAR HGB CONC 33.4 g/dL (32.0-36.0); MEAN CORPUSCULAR VOLUME 87 fl (80-97); PLATELET COUNT 249 10^3/uL (150-450); RED BLOOD COUNT 3.44 10^6/uL (3.72-5.28); RED CELL DISTRIBUTION WIDTH 14.4 % (11.5-14.0); WHITE BLOOD COUNT 6.2 10^3/uL (4.0-10.5)
[2017-07-27 09:29] LABS: INTERNATIONAL RATION (INR) 2.64; PROTHROMBIN TIME 29.5 SEC (11.4-15.4)
[2017-07-27 09:30] LABS: PARTIAL THROMBOPLASTIN TIME 71.7 SEC (23.5-35.8)
[2017-07-27 09:40] LABS: ANION GAP 9 (5-19); BLOOD UREA NITROGEN 12 mg/dL (7-20); CALCIUM 8.9 mg/dL (8.4-10.2); CARBON DIOXIDE 31 mmol/L (22-30); CHLORIDE 103 mmol/L (98-107); GLUCOSE 95 mg/dL (75-110); POTASSIUM 3.9 mmol/L (3.6-5.0); SODIUM 143.2 mmol/L (137-145)
[2017-07-27] MEDS: LACTOBACILLUS ACIDOPHILUS 250 MG TAB PO SCH (11:33)
[2017-07-27] MEDS: OXYCODONE HCL SR 40 MG TABLET PO SCH ×2 (11:34→22:06)
[2017-07-27] MEDS: OMEGA-3 ACID ETHYL ESTERS 1 GM CAPSULE PO SCH (11:34)
[2017-07-27] MEDS: PREGABALIN 75 MG CAPSULE PO SCH ×2 (11:34→17:30)
[2017-07-27] MEDS: MULTIVITAMIN TABLET PO SCH (11:34)
[2017-07-27] MEDS: HYDROCHLOROTHIAZIDE 12.5 MG CAPSULE PO SCH (11:35)
[2017-07-27] MEDS: LOSARTAN POTASSIUM 50 MG TABLET PO SCH (11:36)
[2017-07-27] MEDS: LEVOFLOXACIN 750 MG TABLET PO SCH (17:30)
[2017-07-27] MEDS ORDERED: WARFARIN SODIUM 5 MG TABLET PO SCH (22:00)
[2017-07-27] MEDS: WARFARIN SODIUM 5 MG TABLET PO SCH (22:05)
[2017-07-28] MEDS: OXYCODONE HCL IR 5 MG TABLET PO PRN (03:47)
[2017-07-28] MEDS: LANSOPRAZOLE 30 MG TAB.RAP.DR PO SCH (05:15)
[2017-07-28] MEDS: LOSARTAN POTASSIUM 50 MG TABLET PO SCH (09:47)
[2017-07-28] MEDS: HYDROCHLOROTHIAZIDE 12.5 MG CAPSULE PO SCH (09:47)
[2017-07-28] MEDS: LACTOBACILLUS ACIDOPHILUS 250 MG TAB PO SCH (09:47)
[2017-07-28] MEDS: PREGABALIN 75 MG CAPSULE PO SCH ×2 (09:48→17:43)
[2017-07-28] MEDS: OXYCODONE HCL SR 40 MG TABLET PO SCH ×2 (09:48→21:22)
[2017-07-28] MEDS: MULTIVITAMIN TABLET PO SCH (09:48)
[2017-07-28] MEDS: OMEGA-3 ACID ETHYL ESTERS 1 GM CAPSULE PO SCH (09:48)
[2017-07-28] MEDS ORDERED: INSULIN GLARGINE,HUM.REC.ANLOG 1,000 UNIT/10 ML UNIT SUBCUT ONE (10:37)
[2017-07-28 16:55] LABS: INTERNATIONAL RATION (INR) 2.97; PROTHROMBIN TIME 32.3 SEC (11.4-15.4)
[2017-07-28] MEDS: LEVOFLOXACIN 750 MG TABLET PO SCH (17:43)
[2017-07-28] MEDS: WARFARIN SODIUM 5 MG TABLET PO SCH (21:21)
[2017-07-29] MEDS: LANSOPRAZOLE 30 MG TAB.RAP.DR PO SCH (05:38)
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
[2017-07-29] MEDS: LACTOBACILLUS ACIDOPHILUS 250 MG TAB PO SCH (09:03)
[2017-07-29] MEDS: OMEGA-3 ACID ETHYL ESTERS 1 GM CAPSULE PO SCH (09:03)
[2017-07-29] MEDS: OXYCODONE HCL SR 40 MG TABLET PO SCH (09:03)
[2017-07-29] MEDS: MULTIVITAMIN TABLET PO SCH (09:03)
[2017-07-29] MEDS: PREGABALIN 75 MG CAPSULE PO SCH (09:04)
[2017-07-29] MEDS: HYDROCHLOROTHIAZIDE 12.5 MG CAPSULE PO SCH (09:04)
[2017-07-29 11:22] VITALS: BP 105/42
[2017-07-29] MEDS: LOSARTAN POTASSIUM 50 MG TABLET PO SCH (11:23)
[2017-07-29 12:06] LABS: INTERNATIONAL RATION (INR) 3.14; PROTHROMBIN TIME 33.7 SEC (11.4-15.4)
[2017-07-29] MEDS: OXYCODONE HCL IR 5 MG TABLET PO PRN (14:25)
== END 2017-07-29 15:07 | disposition home health service (06) | DRG 467 ==
LOC: INOR 05:18 → 4S 11:09 → 3N 07-21 21:24
PROVIDERS: ADMIT Orthopaedic Surgery; ATTEND Orthopaedic Surgery
PROC: 0SRD0J9 Replacement of Left Knee Joint with Synthetic Substitute, Cemented, Open Approach (ICD-10-PCS; 2017-07-19)
PROC: 0SPD0JZ Removal of Synthetic Substitute from Left Knee Joint, Open Approach (ICD-10-PCS; principal; 2017-07-19 07:30)
PROC: 30233N1 Transfusion of Nonautologous Red Blood Cells into Peripheral Vein, Percutaneous Approach (ICD-10-PCS; 2017-07-22)
DX: T84.033A Mechanical loosening of internal left knee prosthetic joint, initial encounter (principal); D62 Acute posthemorrhagic anemia; N17.9 Acute kidney failure, unspecified; I48.91 Unspecified atrial fibrillation; I10 Essential (primary) hypertension; M19.90 Unspecified osteoarthritis, unspecified site; R09.89 Other specified symptoms and signs involving the circulatory and respiratory systems; R00.0 Tachycardia, unspecified; E66.3 Overweight; I95.81 Postprocedural hypotension; Z68.35 Body mass index [BMI] 35.0-35.9, adult; Z79.899 Other long term (current) drug therapy; Z95.2 Presence of prosthetic heart valve; Z96.653 Presence of artificial knee joint, bilateral; Z79.01 Long term (current) use of anticoagulants; Z90.710 Acquired absence of both cervix and uterus; Z88.6 Allergy status to analgesic agent; Z91.013 Allergy to seafood; Z82.61 Family history of arthritis; Z82.49 Family history of ischemic heart disease and other diseases of the circulatory system; Z82.3 Family history of stroke; Z83.3 Family history of diabetes mellitus; Z80.9 Family history of malignant neoplasm, unspecified
CPT/HCPCS: 01402; 36415; 36430; 71045; 80048; 80053; 81001; 83605; 84132; 85025; 85027; 85610; 85730; 86850; 86900; 86901; 86920; 87040; 87070; 87075; 87086; 87205; 94799; C1713; C9290; G8978-GP; G8979-GP; G8987-GO; G8988-GO; J0131; J0330; J0690; J1100; J1170; J1200; J1650; J1741; J1956; J2250; J2270; J2405; J2704; J3010; J3370; J3490; J7030; J7050; J7060; L1830; P9016; S0119

== ENCOUNTER → 2017-08-16 | Outpatient (CLI) | payer OTHER, MEDICARE ==
[2017-08-16 17:26] LABS: PROTHROMBIN TIME 36.7 SEC (11.4-15.4)
== END ==
LOC: OD 16:30
PROVIDERS: ATTEND Internal Medicine
DX: Z79.899 Other long term (current) drug therapy (principal)
CPT/HCPCS: 36415; 85610

== ENCOUNTER → 2017-11-02 | Outpatient (CLI) | payer MEDICARE, OTHER ==
[2017-11-02 16:14] LABS: INTERNATIONAL RATION (INR) 2.48
== END ==
LOC: OD 15:01
PROVIDERS: ATTEND Internal Medicine
DX: Z51.81 Encounter for therapeutic drug level monitoring (principal); Z79.01 Long term (current) use of anticoagulants
CPT/HCPCS: 36415; 85610

== ENCOUNTER → 2018-01-31 | Outpatient (CLI) | payer MEDICARE, OTHER ==
[2018-01-31 12:00] LABS: INTERNATIONAL RATION (INR) 2.17; PROTHROMBIN TIME 25.2 SEC (11.4-15.4)
== END ==
LOC: OD 11:16
PROVIDERS: ATTEND Internal Medicine
DX: Z51.81 Encounter for therapeutic drug level monitoring (principal); Z79.01 Long term (current) use of anticoagulants
CPT/HCPCS: 36415; 85610

== ENCOUNTER → 2018-03-07 | Outpatient (CLI) | payer MEDICARE, OTHER ==
[2018-03-07 13:09] LABS: PROTHROMBIN TIME 27.3 SEC (11.4-15.4)
== END ==
LOC: OD 11:56
PROVIDERS: ATTEND Internal Medicine
DX: Z51.81 Encounter for therapeutic drug level monitoring (principal); Z79.01 Long term (current) use of anticoagulants
CPT/HCPCS: 36415; 85610

== ENCOUNTER → 2018-05-25 | Outpatient (CLI) | payer MEDICARE, OTHER ==
[2018-05-25 14:46] LABS: INTERNATIONAL RATION (INR) 2.18; PROTHROMBIN TIME 25.3 SEC (11.4-15.4)
== END ==
LOC: OD 13:50
PROVIDERS: ATTEND Internal Medicine
DX: Z79.01 Long term (current) use of anticoagulants (principal)
CPT/HCPCS: 36415; 85610

== ENCOUNTER → 2018-07-07 | Outpatient (CLI) | payer MEDICARE, OTHER ==
--- NOTE | 2018-07-07 17:20 | RADIOLOGY REPORT (SQ) ---
EXAM DESCRIPTION: FOOT LEFT 2 VIEWS COMPLETED DATE/TIME: 07/07/2018 5:12 pm REASON FOR STUDY: PAIN IN LEFT FOOT M79.672 PAIN IN LEFT FOOT COMPARISON: None. NUMBER OF VIEWS: Two views. TECHNIQUE: AP and lateral radiographic images acquired of the left foot. LIMITATIONS: None. FINDINGS: MINERALIZATION: Normal. BONES: No acute fracture or dislocation. No worrisome bone lesions. JOINTS: No effusions. SOFT TISSUES: No soft tissue swelling. No foreign body. OTHER: No other significant finding. IMPRESSION: NEGATIVE STUDY OF THE LEFT FOOT. NO RADIOGRAPHIC EVIDENCE OF ACUTE INJURY. TECHNICAL DOCUMENTATION: JOB ID: [id number] [employer]- All Rights Reserved Reading location - IP/workstation name: [email or web address]
[2018-07-07 17:45] LABS: INTERNATIONAL RATION (INR) 2.67; PROTHROMBIN TIME 29.7 SEC (11.4-15.4)
== END ==
LOC: OD 16:32
PROVIDERS: ATTEND Internal Medicine
DX: M79.672 Pain in left foot (principal); Z79.01 Long term (current) use of anticoagulants
CPT/HCPCS: 36415; 85610

== ENCOUNTER → 2018-08-05 | Outpatient (CLI) | payer MEDICARE, OTHER ==
[2018-08-05 15:17] LABS: INTERNATIONAL RATION (INR) 2.46; PROTHROMBIN TIME 27.8 SEC (11.4-15.4)
== END ==
LOC: OD 14:04
PROVIDERS: ATTEND Internal Medicine
DX: Z79.01 Long term (current) use of anticoagulants (principal)
CPT/HCPCS: 36415; 85610

== ENCOUNTER → 2018-09-01 | Outpatient (CLI) | payer MEDICARE, OTHER ==
--- NOTE | 2018-09-02 14:03 | WOMENS IMAGING REPORT ---
EXAM DESCRIPTION: 3D SCREENING MAMMO BILAT COMPLETED DATE/TIME: 09/01/2018 11:53 am REASON FOR STUDY: Z12.31 ROUTINE BILATERAL SCREENING COMPARISON: [id number] TECHNIQUE: Standard craniocaudal and mediolateral oblique views of each breast recorded using digita l acquisition and breast tomosynthesis. LIMITATIONS: None. FINDINGS: No masses, calcifications or architectural distortion. No areas of suspicion. Read with the assistance of CAD. .[facility] - R2 Cenova Version 1.3 .[facility] - R2 Cenova Version 2.1 .[facility] - R2 Cenova Version 2.4 .[facility] - R2 Cenova Version 2.4 .[facility] - R2 [employer] Supervisor Version 9.2 IMPRESSION: NORMAL MAMMOGRAM. BIRADS 1. BREAST DENSITY: b. There are scattered areas of fibroglandular density. BIRAD: 1 NEGATIVE RECOMMENDATION: ROUTINE SCREENING COMMENT: The patient has been notified of the results by letter per MQSA requirements. Additional no tification policies are in place for contacting patient with suspicious or incomplete findings. Quality ID #225: The [employer] recommends an annual screening mammogram for women aged 40 years or over. This facility utilizes a reminder system to ensure that all patients receive reminder letters, and/or direct phone calls for appointments. This includes reminders for routine scr eening mammograms, diagnostic mammograms, or other Breast Imaging Interventions when appropriate. Th is patient will be placed in the appropriate reminder system. The [employer] (ACR) has developed recommendations for screening MRI of the breast s in certain patient populations, to be used in conjunction with mammography. Breast MRI surveillanc e may be appropriate for women with more than 20% lifetime risk of developing breast cancer as deter mined by genetic testing, significant family history of the disease, or history of mantle radiation f or Hodgkins Disease. ACR Practice Guidelines 2008. DBT Technology DBT is a type of tomographic mammography. With conventional mammography, overlapping breast tissue ma y make lesions difficult to detect, even with good compression. DBT uses an x-ray tube that rotates a round the breast, taking images at different angles. These images are then combined to create thin sl ices of the breast that the radiologist can view as a 3D reconstruction. The Siminars unit can perform full-field digital mammograms (2D imaging); or DBT (3D imaging); or both, in a combination mode that quickly performs both the mammogram and the tomosynthesis scan while the breast is still compressed. PQRS 6045F: Fluoroscopic imaging is not utilized for breast tomosynthesis. TECHNICAL DOCUMENTATION: FINDING NUMBER: (1) ASSESSMENT: (1) JOB ID: [id number] [employer]- All Rights Reserved Reading location - IP/workstation name: [email or web address]
== END ==
LOC: WI 11:27
PROVIDERS: ATTEND Obstetrics & Gynecology Gynecology
DX: Z12.31 Encounter for screening mammogram for malignant neoplasm of breast (principal)
CPT/HCPCS: 77063; 77067

== ENCOUNTER → 2018-11-08 | Outpatient (CLI) | payer MEDICARE, OTHER ==
[2018-11-08 15:56] LABS: INTERNATIONAL RATION (INR) 2.39; PROTHROMBIN TIME 27.2 SEC (11.4-15.4)
== END ==
LOC: OD 14:59
PROVIDERS: ATTEND Internal Medicine
DX: Z79.01 Long term (current) use of anticoagulants (principal)
CPT/HCPCS: 36415; 85610

== ENCOUNTER → 2018-12-14 | Outpatient (CLI) | payer MEDICARE, OTHER ==
[2018-12-14 14:36] LABS: ABSOLUTE EOSINOPHILS # (AUTO) 0.1 10^3/uL (0.0-0.6); ABSOLUTE MONOCYTES (AUTO) 0.3 10^3/uL (0.1-1.4); ABSOLUTE NEUT (AUTO) 2.5 10^3/uL (1.7-8.2); BASOPHILS % (AUTO) 0.8 % (0-2); EOSINOPHILS % (AUTO) 3.2 % (0-6); HEMATOCRIT 39.3 % (36.0-47.0); HEMOGLOBIN 12.8 g/dL (12.0-15.5); MEAN CORPUSCULAR HEMOGLOBIN 28.3 pg (27.0-33.4); MEAN CORPUSCULAR HGB CONC 32.6 g/dL (32.0-36.0); MEAN CORPUSCULAR VOLUME 87 fl (80-97); MONOCYTES % (AUTO) 7.3 % (3-13); PLATELET COUNT 169 10^3/uL (150-450); RED BLOOD COUNT 4.52 10^6/uL (3.72-5.28); RED CELL DISTRIBUTION WIDTH 15.1 % (11.5-14.0); SEGMENTED NEUTROPHILS % (AUTO) 62.7 % (42-78); TOTAL CELLS COUNTED % (AUTO) 100 %; WHITE BLOOD COUNT 3.9 10^3/uL (4.0-10.5)
[2018-12-14 14:42] LABS: INTERNATIONAL RATION (INR) 2.64; PROTHROMBIN TIME 28.7 SEC (11.4-15.4)
[2018-12-14 15:19] LABS: ERYTHROCYTE SEDIMENTATION RATE 28 mm/hr (0-30)
[2018-12-14 15:27] LABS: ANION GAP 7 (5-19); BLOOD UREA NITROGEN 14 mg/dL (7-20); C-REACTIVE PROTEIN 18.5 mg/L (<10.0); CALCIUM 9.4 mg/dL (8.4-10.2); CARBON DIOXIDE 33 mmol/L (22-30); CHLORIDE 101 mmol/L (98-107); GLUCOSE 89 mg/dL (75-110); POTASSIUM 3.9 mmol/L (3.6-5.0); SODIUM 140.5 mmol/L (137-145)
== END ==
LOC: OD 13:40
PROVIDERS: ATTEND Internal Medicine
DX: M25.562 Pain in left knee (principal); Z79.01 Long term (current) use of anticoagulants
CPT/HCPCS: 36415; 80048; 85025; 85610; 85652; 86140

== ENCOUNTER → 2019-02-14 | Outpatient (CLI) | payer MEDICARE, OTHER ==
--- NOTE | 2019-02-14 15:35 | RADIOLOGY REPORT (SQ) ---
EXAM DESCRIPTION: NM 3 PHASE BONE SCAN COMPLETED DATE/TIME: 02/14/2019 2:57 pm REASON FOR STUDY: PRESENCE OF LEFT ARTIFICIAL KNEE JOINT Z96.652 PRESENCE OF LEFT ARTIFICIAL KNEE J OINT COMPARISON: Conventional radiographs dated 12/13/2018, prior bone scan dated 05/12/2017 and conventiona l radiographs dated 07/19/2017 RADIONUCLIDE AND DOSE: 22.0 millicuries Tc99m HDP. The route of agent administration: Intravenous. ADDITIONAL DRUGS AND DOSES: None. TECHNIQUE: Following injection of the radiopharmaceutical, serial blood flow images acquired. Equil ibrium blood pool images then acquired. Routine delayed images at 3 hour acquired of the areas of cl inical concern with additional focused images as needed. AREA OF INTEREST: Left knee LIMITATIONS: None. FINDINGS: VASCULAR FLOW IMAGES: There is increased activity on the left on flow sequences. BLOOD POOL IMAGES: There is increased activity on blood pool images on the left. BONES: There is increased activity on delayed images in the left knee surrounding the femoral and tib ial components of the prosthesis. KIDNEYS: Not imaged. OTHER: No other significant finding. IMPRESSION: Increased activity on all 3 phases involving the left knee. Findings can be seen with p rostatic loosening or infection. COMMENT: Quality measure 147: Current bone scan is compared with any available plain radiographs, p rior bone scans, and CT/MRI. TECHNICAL DOCUMENTATION: JOB ID: [id number] [employer]- All Rights Reserved Reading location - IP/workstation name: [email or web address]
== END ==
LOC: RAD 11:23
PROVIDERS: ATTEND Orthopaedic Surgery
DX: Z47.1 Aftercare following joint replacement surgery (principal); Z96.652 Presence of left artificial knee joint
CPT/HCPCS: 78315; A9561; Q9969

== ENCOUNTER → 2019-02-16 | Outpatient (CLI) | payer MEDICARE, OTHER ==
[2019-02-16 15:51] LABS: INTERNATIONAL RATION (INR) 2.43; PROTHROMBIN TIME 26.9 SEC (11.4-15.4)
== END ==
LOC: OD 14:39
PROVIDERS: ATTEND Internal Medicine
DX: Z79.01 Long term (current) use of anticoagulants (principal)
CPT/HCPCS: 36415; 85610

== ENCOUNTER → 2019-02-16 | Outpatient (CLI) | payer MEDICARE, OTHER ==
--- NOTE | 2019-02-16 14:53 | RADIOLOGY REPORT (SQ) ---
EXAM DESCRIPTION: CT HEAD WITHOUT COMPLETED DATE/TIME: 02/16/2019 2:13 pm REASON FOR STUDY: G45.9 TRANSIENT CEREBRAL ISCHEMIC ATTACK, UNSPECIFIED G45.9 TRANSIENT CEREBRAL IS CHEMIC ATTACK, UNSPECIFIED COMPARISON: CT BRAIN 07/17/2009, 07/15/2007, 07/14/2007 TECHNIQUE: Axial images acquired through the brain without intravenous contrast. Images reviewed wi th bone, brain and subdural windows. Additional sagittal and coronal reconstructions were generated. Images stored on PACS. All CT scanners at this facility use dose modulation, iterative reconstruction, and/or weight based d osing when appropriate to reduce radiation dose to as low as reasonably achievable (ALARA). [facility]: Dose Right [facility]: CareDose [facility]: Dose Right [facility]: Teradose 4D [facility]: NXT-ID RADIATION DOSE: CT Rad equipment meets quality standard of care and radiation dose reduction techniq ues were employed. CTDIvol: 48.6 mGy. DLP: 855 mGy-cm. mGy. LIMITATIONS: None. FINDINGS: VENTRICLES: Normal size and contour. CEREBRUM: No masses. No hemorrhage. No midline shift. No evidence for acute infarction. Normal gra y/white matter differentiation. No areas of low density in the white matter. CEREBELLUM: Tiny chronic lacunar infarcts are present in the inferior right and left cerebellar enrique spheres unchanged from prior studies. No masses. No hemorrhage. No alteration of density. No evid ence for acute infarction. EXTRAAXIAL SPACES: No fluid collections. No masses. ORBITS AND GLOBE: No intra- or extraconal masses. Normal contour of globe without masses. CALVARIUM: No fracture. PARANASAL SINUSES: No fluid or mucosal thickening. SOFT TISSUES: No mass or hematoma. OTHER: No other significant finding. IMPRESSION: Old tiny cerebellar lacunar infarcts. No acute findings EVIDENCE OF ACUTE STROKE: NO. COMMENT: Quality ID # 436: Final reports with documentation of one or more dose reduction techniques (e.g., Automated exposure control, adjustment of the mA and/or kV according to patient size, use of iterative reconstruction technique) TECHNICAL DOCUMENTATION: JOB ID: [id number] [employer]- All Rights Reserved Reading location - IP/workstation name: [email or web address]
== END ==
LOC: RAD 13:38
PROVIDERS: ATTEND Internal Medicine
DX: G45.9 Transient cerebral ischemic attack, unspecified (principal)
CPT/HCPCS: 70450

== ENCOUNTER → 2019-03-21 | Outpatient (CLI) | payer MEDICARE, OTHER ==
[2019-03-21 12:43] LABS: INTERNATIONAL RATION (INR) 3.13; PROTHROMBIN TIME 32.9 SEC (11.4-15.4)
== END ==
LOC: OD 11:37
PROVIDERS: ATTEND Internal Medicine
DX: Z79.01 Long term (current) use of anticoagulants (principal)
CPT/HCPCS: 36415; 85610

== ENCOUNTER 2019-05-24 13:03 | Day surgery (SDC) | payer MEDICARE, OTHER ==
[~2019-05-24 13:03] MED LIST changes: -BUPIVACAINE INJ/PF LIPOSOME/PF 266 MG/20 ML SDV IJ PRN; -IBUPROFEN 800 MG/NS 250 ML IV PRN; +KETOROLAC TROMETHAMINE 0.45% 4 DROP/0.4 ML DROPERETTE OS PRN; -LACTATED RINGERS 1000 ML IV PRN; -LANSOPRAZOLE 15 MG TAB.RAP.DR PO PRN; -LIDOCAINE 0.5% INJ-PF (5 MG/ML) 50 ML SDV SUBCUT PRN; -OXYCODONE HCL SR 10 MG TABLET PO PRN; -VANCOMYCIN HCL 1,000 MG in DEXTROSE 5%-WATER 250 ML IV PRN
[2019-05-24] MEDS: TETRACAINE HCL 0.5% OPH SOLN 4 ML OS PRN ×3 (13:20→14:16)
[2019-05-24] MEDS: CYCLOPENTOLATE 0.2%/PHENYLEPHRINE 1% OPH SOLN 2 ML OS PRN ×3 (13:20→13:50)
[2019-05-24] MEDS: BESIFLOXACIN HCL 0.6% OPH SUSP 5 ML BOTTLE OS PRN ×4 (13:20→14:31)
[2019-05-24] MEDS: TROPICAMIDE 1% OPH SOLN 15 ML OS PRN ×3 (13:20→13:50)
[2019-05-24] MEDS ORDERED: FENTANYL CITRATE INJ/PF 100 MCG/2 ML AMPUL ONE (13:37)
[2019-05-24] MEDS ORDERED: MIDAZOLAM 2 MG/2 ML INJ ONE (13:37)
[2019-05-24] MEDS: EPINEPHRINE INJ/PF 1 MG/1 ML AMPULE ONE ×2 (14:23→14:24)
[2019-05-24] MEDS: CHONDR SU A NA/HYALUR INTRAOC KIT (SURGICARE) ONE ×2 (14:23→14:24)
[2019-05-24] MEDS: LIDOCAINE 1%/PHENYLEPHRINE 1.5% 1 ML VIAL ONE ×2 (14:24→14:25)
[2019-05-24] MEDS: DORZOLAMIDE HCL 2%/TIMOLOL MALEAT 0.5% OPH SOLN 10 ML OS PRN ×2 (14:25→14:31)
== END 2019-05-24 15:10 | disposition home or self-care (01) ==
LOC: SC 13:03
PROVIDERS: ATTEND Ophthalmology
DX: H25.12 Age-related nuclear cataract, left eye (principal); Z79.899 Other long term (current) drug therapy; Z79.01 Long term (current) use of anticoagulants; Z88.6 Allergy status to analgesic agent; I10 Essential (primary) hypertension; Z86.73 Personal history of transient ischemic attack (TIA), and cerebral infarction without residual deficits
CPT/HCPCS: 66984; 00142; V2632; J2250; J3490 ×2; A9270; J0171; J3010; J2370; 142

== ENCOUNTER 2019-06-05 11:22 | Day surgery (SDC) | payer MEDICARE, OTHER ==
[~2019-06-05 11:22] MED LIST changes: +CHONDR SU A NA/HYALUR INTRAOC KIT (SURGICARE) ONE; +DORZOLAMIDE HCL 2%/TIMOLOL MALEAT 0.5% OPH SOLN 10 ML OD PRN; +EPINEPHRINE INJ/PF 1 MG/1 ML AMPULE ONE; +KETOROLAC TROMETHAMINE 0.45% 4 DROP/0.4 ML DROPERETTE OD PRN; -KETOROLAC TROMETHAMINE 0.45% 4 DROP/0.4 ML DROPERETTE OS PRN; +LIDOCAINE 1%/PHENYLEPHRINE 1.5% 1 ML VIAL ONE
[2019-06-05] MEDS: TROPICAMIDE 1% OPH SOLN 15 ML OD PRN ×3 (11:41→12:01)
[2019-06-05] MEDS: CYCLOPENTOLATE 0.2%/PHENYLEPHRINE 1% OPH SOLN 2 ML OD PRN ×3 (11:41→12:01)
[2019-06-05] MEDS: BESIFLOXACIN HCL 0.6% OPH SUSP 5 ML BOTTLE OD PRN ×3 (11:41→12:35)
[2019-06-05] MEDS: TETRACAINE HCL 0.5% OPH SOLN 4 ML OD PRN ×3 (11:42→12:18)
[2019-06-05] MEDS ORDERED: MIDAZOLAM 2 MG/2 ML INJ ONE (11:54)
[2019-06-05] MEDS ORDERED: LIDOCAINE 1% INJ-PF (10 MG/ML) 30 ML SDV ONE (12:03)
== END 2019-06-05 13:11 | disposition home or self-care (01) ==
LOC: SC 11:22
PROVIDERS: ATTEND Ophthalmology
DX: H25.11 Age-related nuclear cataract, right eye (principal); Z79.84 Long term (current) use of oral hypoglycemic drugs; Z79.82 Long term (current) use of aspirin; I10 Essential (primary) hypertension; Z86.73 Personal history of transient ischemic attack (TIA), and cerebral infarction without residual deficits; Z98.42 Cataract extraction status, left eye; Z88.6 Allergy status to analgesic agent
CPT/HCPCS: 66984; 00142; V2632; J2250; J3490 ×3; A9270; J0171; J2370; 142

== ENCOUNTER → 2019-08-11 | Outpatient (CLI) | payer MEDICARE, OTHER ==
--- NOTE | 2019-08-11 13:30 | WOMENS IMAGING REPORT ---
EXAM DESCRIPTION: 3D SCREENING MAMMO BILAT COMPLETED DATE/TIME: 08/11/2019 12:44 pm REASON FOR STUDY: Z12.31 ENCOUNTER FOR SCREENING MAMMOGRAM FOR MALIGNANT NEOPLASM OF BREAST Z12.31 ENCNTR SCREEN MAMMOGRAM FOR MALIGNANT NEOPLASM OF DELMY COMPARISON: [id number] EXAM PARAMETERS: Views: Standard craniocaudal and mediolateral oblique views of each breast recorded using digital acquisition and breast tomosynthesis. Read with the assistance of CAD. .[facility] - [employer] Tr[employer] Teacher Version 9.2 LIMITATIONS: None. FINDINGS: No suspicious masses, suspicious calcifications or architectural distortion. No areas of c oncern. IMPRESSION: NEGATIVE MAMMOGRAM. BIRADS 1. BREAST DENSITY: b. There are scattered areas of fibroglandular density. BIRAD: ASSESSMENT: 1 NEGATIVE RECOMMENDATION: ROUTINE SCREENING COMMENT: The patient has been notified of the results by letter per MQSA requirements. Additional no tification policies are in place for contacting patient with suspicious or incomplete findings. Quality ID #225: The [employer] recommends an annual screening mammogram for women aged 40 years or over. This facility utilizes a reminder system to ensure that all patients receive reminder letters, and/or direct phone calls for appointments. This includes reminders for routine scr eening mammograms, diagnostic mammograms, or other Breast Imaging Interventions when appropriate. Th is patient will be placed in the appropriate reminder system. TECHNICAL DOCUMENTATION: FINDING NUMBER: (1) ASSESSMENT: (1) JOB ID: [id number] 2010 [employer]- All Rights Reserved Reading location - IP/workstation name: [email or web address]
== END ==
LOC: WI 11:07
PROVIDERS: ATTEND Obstetrics & Gynecology Gynecology
DX: Z12.31 Encounter for screening mammogram for malignant neoplasm of breast (principal)
CPT/HCPCS: 77063; 77067

== ENCOUNTER → 2019-08-15 | Outpatient (CLI) | payer MEDICARE, OTHER ==
[2019-08-15 17:25] LABS: INTERNATIONAL RATION (INR) 3.35; PROTHROMBIN TIME 34.8 SEC (11.4-15.4)
== END ==
LOC: OD 15:30
PROVIDERS: ATTEND Internal Medicine
DX: Z51.81 Encounter for therapeutic drug level monitoring (principal); Z79.01 Long term (current) use of anticoagulants
CPT/HCPCS: 36415; 85610

== ENCOUNTER 2019-08-24 06:06 | Emergency (ER) | payer MEDICARE ==
[2019-08-24 06:43] LABS: ABSOLUTE EOSINOPHILS # (AUTO) 0.2 10^3/uL (0.0-0.6); ABSOLUTE LYMPHOCYTES (AUTO) 1.4 10^3/uL (0.5-4.7); ABSOLUTE MONOCYTES (AUTO) 0.6 10^3/uL (0.1-1.4); ABSOLUTE NEUT (AUTO) 4.1 10^3/uL (1.7-8.2); BASOPHILS % (AUTO) 0.7 % (0-2); EOSINOPHILS % (AUTO) 2.8 % (0-6); HEMATOCRIT 40.6 % (36.0-47.0); HEMOGLOBIN 13.4 g/dL (12.0-15.5); LYMPHOCYTES % (AUTO) 22.8 % (13-45); MEAN CORPUSCULAR HEMOGLOBIN 28.9 pg (27.0-33.4); MEAN CORPUSCULAR VOLUME 88 fl (80-97); MONOCYTES % (AUTO) 9.3 % (3-13); PLATELET COUNT 190 10^3/uL (150-450); RED BLOOD COUNT 4.63 10^6/uL (3.72-5.28); RED CELL DISTRIBUTION WIDTH 15.5 % (11.5-14.0); SEGMENTED NEUTROPHILS % (AUTO) 64.4 % (42-78); TOTAL CELLS COUNTED % (AUTO) 100 %; WHITE BLOOD COUNT 6.3 10^3/uL (4.0-10.5)
[2019-08-24 06:59] LABS: ALBUMIN 4.5 g/dL (3.5-5.0); ALKALINE PHOSPHATASE 81 U/L (38-126); ANION GAP 10 (5-19); ASPARTATE AMINO TRANSFERASE 34 U/L (14-36); BILIRUBIN,DIRECT 0.2 mg/dL (0.0-0.4); BILIRUBIN,TOTAL 0.5 mg/dL (0.2-1.3); BLOOD UREA NITROGEN 22 mg/dL (7-20); CALCIUM 9.3 mg/dL (8.4-10.2); CARBON DIOXIDE 32 mmol/L (22-30); CHLORIDE 100 mmol/L (98-107); GLUCOSE 125 mg/dL (75-110); POTASSIUM 3.9 mmol/L (3.6-5.0); TOTAL PROTEIN 8.4 g/dL (6.3-8.2)
[2019-08-24 07:05] LABS: APPEARANCE,URINE CLEAR; BILIRUBIN,URINE NEGATIVE (NEGATIVE); COLOR,URINE YELLOW; GLUCOSE, URINE NEGATIVE (NEGATIVE); KETONES,URINE NEGATIVE (NEGATIVE); LEUKOCYTE ESTERASE,URINE SMALL (NEGATIVE); NITRITE,URINE NEGATIVE (NEGATIVE); PROTEIN,URINE NEGATIVE (NEGATIVE); URINE SPECIFIC GRAVITY 1.013; UROBILINOGEN,URINE NEGATIVE mg/dL (<2.0)
[2019-08-24] MEDS ORDERED: MAG HYDROX/AL HYDROX/SIMETH SUSP 30 ML UDCUP PO ONE (07:55)
[2019-08-24] MEDS ORDERED: LIDOCAINE 2% VISCOUS SOLN 15 ML UDCUP PO ONE (07:55)
[2019-08-24 08:30] LABS: INTERNATIONAL RATION (INR) 2.99; PROTHROMBIN TIME 31.7 SEC (11.4-15.4)
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
--- NOTE | 2019-08-24 09:26 | RADIOLOGY REPORT (SQ) ---
EXAM DESCRIPTION: ACUTE ABDOMEN SERIES COMPLETED DATE/TIME: 08/24/2019 8:41 am REASON FOR STUDY: Epigastric abdominal pains, cough COMPARISON: None. NUMBER OF VIEWS: Three views. TECHNIQUE: Frontal chest, supine abdomen and upright/decubitus abdomen radiographic images acquired. LIMITATIONS: None. FINDINGS: CHEST: Lungs clear of infiltrates. FREE AIR: None. No abnormal gas collections. BOWEL GAS PATTERN: Abundant gas and fecal material from the cecum to the rectum. No dilated loops. CALCIFICATIONS: No suspicious calcifications. HARDWARE: None in the abdomen. SOFT TISSUES: No gross mass or suggestion of organomegaly. BONES: No acute fracture. No worrisome bone lesions. OTHER: No other significant finding. IMPRESSION: Fecal retention. No obstruction. TECHNICAL DOCUMENTATION: JOB ID: [id number] 2010 [employer]- All Rights Reserved Reading location - IP/workstation name: [email or web address]
[2019-08-24 09:35] VITALS: BP 111/76
== END 2019-08-24 09:34 | disposition home or self-care (01) ==
LOC: ER 06:06
DX: K21.9 Gastro-esophageal reflux disease without esophagitis (principal); K59.00 Constipation, unspecified; R10.9 Unspecified abdominal pain; R14.0 Abdominal distension (gaseous); R11.0 Nausea; R10.10 Upper abdominal pain, unspecified; R05 Cough; J02.9 Acute pharyngitis, unspecified; R09.81 Nasal congestion; Z88.8 Allergy status to other drugs, medicaments and biological substances; I48.91 Unspecified atrial fibrillation; I10 Essential (primary) hypertension; J45.909 Unspecified asthma, uncomplicated
CPT/HCPCS: 99284; 36415; 83690; 85025; 85610; 80053; 81001; 74022; J3490; A9270

== ENCOUNTER → 2019-11-13 | Outpatient (CLI) | payer MEDICARE, OTHER ==
[2019-11-13 15:23] LABS: INTERNATIONAL RATION (INR) 2.75; PROTHROMBIN TIME 29.7 SEC (11.4-15.4)
== END ==
LOC: OD 14:25
PROVIDERS: ATTEND Internal Medicine
DX: Z51.81 Encounter for therapeutic drug level monitoring (principal); Z79.01 Long term (current) use of anticoagulants
CPT/HCPCS: 36415; 85610

== ENCOUNTER → 2020-02-26 | Outpatient (CLI) | payer MEDICARE, OTHER ==
[2020-02-26 16:53] LABS: INTERNATIONAL RATION (INR) 2.37; PROTHROMBIN TIME 25.9 SEC (11.4-15.4)
== END ==
LOC: OD 15:38
PROVIDERS: ATTEND Internal Medicine
DX: Z79.01 Long term (current) use of anticoagulants (principal)
CPT/HCPCS: 36415; 85610

== ENCOUNTER → 2020-04-01 | Outpatient (CLI) | payer MEDICARE, OTHER ==
[2020-04-01 16:37] LABS: INTERNATIONAL RATION (INR) 3.23; PROTHROMBIN TIME 32.8 SEC (11.4-15.4)
== END ==
LOC: OD 15:07
PROVIDERS: ATTEND Internal Medicine
DX: Z79.01 Long term (current) use of anticoagulants (principal)
CPT/HCPCS: 36415; 85610

== ENCOUNTER → 2020-04-17 | Outpatient (CLI) | payer MEDICARE, OTHER ==
[2020-04-17 14:01] LABS: INTERNATIONAL RATION (INR) 1.07; PROTHROMBIN TIME 14.1 SEC (11.4-15.4)
== END ==
LOC: OD 12:59
PROVIDERS: ATTEND Internal Medicine
DX: Z51.81 Encounter for therapeutic drug level monitoring (principal); Z79.01 Long term (current) use of anticoagulants
CPT/HCPCS: 36415; 85610

== ENCOUNTER → 2020-04-22 | Outpatient (CLI) | payer MEDICARE, OTHER ==
[2020-04-22 15:55] LABS: INTERNATIONAL RATION (INR) 2.28
[2020-04-22 16:00] LABS: PROTHROMBIN TIME 25.1 SEC (11.4-15.4)
== END ==
LOC: OD 13:59
PROVIDERS: ATTEND Internal Medicine
DX: Z51.81 Encounter for therapeutic drug level monitoring (principal); Z79.01 Long term (current) use of anticoagulants
CPT/HCPCS: 36415; 85610

== ENCOUNTER → 2020-05-06 | Outpatient (CLI) | payer MEDICARE, OTHER ==
[2020-05-06 12:41] LABS: INTERNATIONAL RATION (INR) 3.96; PROTHROMBIN TIME 38.3 SEC (11.4-15.4)
== END ==
LOC: OD 11:05
PROVIDERS: ATTEND Internal Medicine
DX: Z51.81 Encounter for therapeutic drug level monitoring (principal); Z79.01 Long term (current) use of anticoagulants
CPT/HCPCS: 36415; 85610

== ENCOUNTER → 2020-06-18 | Outpatient (CLI) | payer MEDICARE, OTHER ==
--- NOTE | 2020-06-18 16:42 | RADIOLOGY REPORT (SQ) ---
EXAM DESCRIPTION: PARANASAL SINUSES IMAGES COMPLETED DATE/TIME: 06/18/2020 4:19 pm REASON FOR STUDY: (R05)COUGH R05 COUGH COMPARISON: 08/18/2011 NUMBER OF VIEWS: Three views. TECHNIQUE: Images of the paranasal sinuses acquired. LIMITATIONS: None. FINDINGS: ORBITS: No fracture. No foreign body. SINUSES: Fairly extensive inhomogeneous opacification of the right maxillary sinus. Question of exp ansion or bulging into the right nasal cavity. This findings best seen on the Water's view. No fluid levels. FACIAL BONES: No fracture. OTHER: No other significant finding. IMPRESSION: 1. Fairly extensive inhomogeneous opacification of the right maxillary sinus with quest ion of expansion or bulging into the right nasal cavity. Correlation and further evaluation with CT sinus examination. TECHNICAL DOCUMENTATION: JOB ID: [id number] 2010 [employer]- All Rights Reserved Reading location - IP/workstation name: [email or web address]
--- NOTE | 2020-06-18 16:44 | RADIOLOGY REPORT (SQ) ---
EXAM DESCRIPTION: CHEST 2 VIEWS IMAGES COMPLETED DATE/TIME: 06/18/2020 4:19 pm REASON FOR STUDY: (R05)COUGH COMPARISON: 12/23/2016 EXAM PARAMETERS: NUMBER OF VIEWS: two views TECHNIQUE: Digital Frontal and Lateral radiographic views of the chest acquired. RADIATION DOSE: NA LIMITATIONS: none FINDINGS: LUNGS AND PLEURA: No opacities, masses or pneumothorax. No pleural effusion. MEDIASTINUM AND HILAR STRUCTURES: No masses or contour abnormalities. HEART AND VASCULAR STRUCTURES: Stable appearance. BONES: No acute findings. HARDWARE: Prior anterior median sternotomy. OTHER: No other significant finding. IMPRESSION: 1. No significant interval changes since the prior study dated 12/23/2016. No acute pul monary findings. TECHNICAL DOCUMENTATION: JOB ID: [id number] 2010 [employer]- All Rights Reserved Reading location - IP/workstation name: [email or web address]
== END ==
LOC: RAD 15:48
PROVIDERS: ATTEND Internal Medicine
DX: R05 Cough (principal)
CPT/HCPCS: 70220; 71046

== ENCOUNTER → 2020-06-18 | Outpatient (CLI) | payer MEDICARE, OTHER ==
[2020-06-18 17:42] LABS: INTERNATIONAL RATION (INR) 2.26
== END ==
LOC: OD 16:31
PROVIDERS: ATTEND Internal Medicine
DX: Z51.81 Encounter for therapeutic drug level monitoring (principal); Z79.01 Long term (current) use of anticoagulants
CPT/HCPCS: 36415; 85610

== ENCOUNTER → 2020-06-19 | Outpatient (CLI) | payer MEDICARE, OTHER ==
--- NOTE | 2020-06-19 11:14 | RADIOLOGY REPORT (SQ) ---
EXAM DESCRIPTION: CT SINUSES FOR ENT<Procedure Description>CT SINUSES FOR ENT IMAGES COMPLETED DATE/TIME: 06/19/2020 10:16 am<Completed Time>06/19/2020 10:16 am REASON FOR STUDY: (J32.9)CHRONIC SINUSITIS, UNSPECIFIED<Reason For Exam>(J32.9)CHRONIC SINUSITIS, UN SPECIFIED J32.9 CHRONIC SINUSITIS, UNSPECIFIED<ICD10 Code1>J32.9 CHRONIC SINUSITIS, UNSPECIFIED <IC D10 Code2> <ICD10 Code3> <ADM DX> COMPARISON: None. TECHNIQUE: Noncontrast scanning through the paranasal sinuses using bone algorithm. Reconstructed MPR images reviewed. All images stored on PACS. All CT scanners at this facility use dose modulation, iterative reconstruction, and/or weight based d osing when appropriate to reduce radiation dose to as low as reasonably achievable (ALARA). [facility]: Dose Right [facility]: CareDose [facility]: Dose Right [facility]: Teradose 4D [facility]: [employer] RADIATION DOSE: <RADIATION DOSE> <[facility] mGy>mGy. LIMITATIONS: None. FINDINGS: The frontal sinuses and right maxillary sinus are hypoplastic. There is mucosal thickenin g and fluid in the right maxillary sinus. Infundibula are patent. Thinning of the ethmoids bilatera lly. IMPRESSION: Acute on chronic right maxillary sinusitis. TECHNICAL DOCUMENTATION: JOB ID: [id number]<Job ID>[id number] Quality ID # [id number]: Final reports with documentation of one or more dose reduction techniques (e.g., Au tomated exposure control, adjustment of the mA and/or kV according to patient size, use of iterative reconstruction technique) 2010 [employer]- All Rights Reserved Reading location - IP/workstation name: [email or web address]
== END ==
LOC: RAD 09:35
PROVIDERS: ATTEND Internal Medicine
DX: J32.9 Chronic sinusitis, unspecified (principal)
CPT/HCPCS: 70486

== ENCOUNTER → 2020-06-28 | Outpatient (CLI) | payer MEDICARE, OTHER ==
[2020-06-28 16:01] LABS: INTERNATIONAL RATION (INR) 2.46; PROTHROMBIN TIME 26.6 SEC (11.4-15.4)
== END ==
LOC: OD 14:52
PROVIDERS: ATTEND Internal Medicine
DX: Z51.81 Encounter for therapeutic drug level monitoring (principal); Z79.01 Long term (current) use of anticoagulants
CPT/HCPCS: 36415; 85610